=== PATIENT | female | born 1955 | race Caucasian/White ===

== ENCOUNTER → 2021-05-14 | Outpatient (CLI) | payer OTHER ==
[~2021-05-14] MED LIST: ALBU90OI INH; BECL25NI; CEFAZOLIN; CETI10 PO; CODACE60 PO; FLUT110OIA IH; FURO80 PO; OMEP10ER PO; POTCHL20ER PO; SUMA25 PO
[2021-05-15 13:17] LABS: Candida species (DNA Probe) Negative (NEGATIVE); G. vaginalis (DNA Probe) Negative (NEGATIVE); T. vaginalis (DNA Probe) Negative (NEGATIVE)
== END ==
LOC: LAB SHORT 19:04
PROVIDERS: Family Medicine
DX: N93.9 Abnormal uterine and vaginal bleeding, unspecified (principal)
CPT/HCPCS: 87480; 87510; 87660

== ENCOUNTER → 2021-06-08 | Outpatient (CLI) | payer MEDICARE | END | disposition home or self-care (01) | LOC: LAB SHORT 07:58 | DX: C54.1 Malignant neoplasm of endometrium (principal) | CPT/HCPCS: 88305 ==

== ENCOUNTER 2021-07-18 08:02 | Inpatient (IN) | payer MEDICARE ==
[~2021-07-18] VITALS: Ht 170.2 cm; Wt 132.2 kg
[2021-07-18 09:11] LABS: Hematocrit 37.8 % (33.0-51.0); Hemoglobin 12.6 g/dL (11.5-16.0); Mean Corpuscular HGB 29.4 pg (26.0-34.0); Mean Corpuscular HGB Conc 33.3 g/dL (31.5-36.5); Mean Corpuscular Volume 88 fL (80-100); Mean Platelet Volume 11.1 fL (9.1-12.4); Platelet Count 171 K/mm3 (150-400); RDW Standard Deviation 42.5 fL (35.1-46.3); Red Blood Cell Count 4.28 M/mm3 (3.80-5.20); White Blood Cell Count 18.67 K/mm3 (4.00-11.30)
[2021-07-18 09:19] LABS: Source, Urine Clean Catch
[2021-07-18 09:28] LABS: Appearance, Urine Hazy (Clear); Bilirubin, Urine Neg (Neg); Blood, Urine 1+ (Neg); Color, Urine Yellow (P-Yellow); Glucose Qualitative, Urine 4+ (Neg); Ketones, Urine 4+ (Neg); Leukocyte Esterase, Urine Neg (Neg); Nitrite, Urine Neg (Neg); Protein, Urine 1+ (Neg); Urobilinogen, Urine NORM (Normal)
[2021-07-18 09:29] LABS: Alanine Aminotransfer (ALT/SGP 16 U/L (12-78); Albumin, Blood 1.9 g/dL (3.4-5.0); Albumin/Globulin Ratio 0.4 (0.8-1.8); Alk Phos 153 U/L (50-136); Anion Gap 22 mmol/L (6-16); Aspartate Aminotrans (AST/SGOT 15 U/L (12-37); Bilirubin, Total 0.6 mg/dL (0.1-1.0); Blood Urea Nitrogen 51 mg/dL (8-24); Bun/Creatinine Ratio 61.9 (12.0-20.0); CO2, Blood 17 mmol/L (21-32); CPK Creatine Kinase 44 U/L (26-193); Calcium, Blood 10.2 mg/dL (8.5-10.1); Chloride, Blood 89 mmol/L (98-108); Creatinine, Blood 0.82 mg/dL (0.40-1.00); Globulin, Blood 5.2 g/dL (2.2-4.0); Glomerular Filtration Rate >60 (60-); Glucose, Blood 497 mg/dL (70-99); Magnesium, Blood 2.2 mg/dL (1.6-2.4); Potassium, Blood 3.8 mmol/L (3.5-5.5); Sodium, Blood 128 mmol/L (136-145); Total Protein, Blood 7.1 g/dL (6.4-8.2); Uric Acid, Blood 11.9 mg/dL (2.6-6.0)
[2021-07-18 09:34] LABS: Creatine Kinase MB <1.0 ng/mL (0.0-3.6); Creatine Kinase MB Index Unable to Calculate (0.0-4.0)
[2021-07-18] MEDS ORDERED: TRAM50 PO (09:43)
[2021-07-18 09:48] LABS: BAND PERCENT MAN 21 % (0-8); BASOPHILS PERCENT MAN 0 % (0-2); EOSINOPHILS PERCENT MAN 0 % (0-6); LYMPHOCYTES ABSOLUTE MAN 0.93 K/mm3 (0.84-5.20); LYMPHOCYTES PERCENT MAN 5 % (21-46); MONOCYTES ABSOLUTE MAN 1.49 K/mm3 (0.16-1.47); MONOCYTES PERCENT MAN 8 % (4-13); NEUTROPHILS ABSOLUTE MAN 16.24 K/mm3 (1.96-9.15); SEG NEUTROPHILS PERCENT MAN 66 % (41-73); TOTAL CELLS COUNTED 100
[2021-07-18 09:53] LABS: Red Blood Cells, Urine 0-2 /hpf (0-2); White Blood Cells, Urine 0-2 /hpf (0-5)
[2021-07-18 09:54] LABS: Amorphous Mod (0-Heavy); Bacteria Rare /hpf; Squamous Epithelial Cells Few /hpf (Few)
[2021-07-18 10:21] LABS: Base Excess Venous -8.7 mmol/L; Bicarbonate Venous 17.9 mmol/L (24.0-30.0); PCO2 Venous 37.8 mmHg (38-42); pH Blood Venous 7.29 (7.34-7.37)
[2021-07-18 13:08] LABS: Anion Gap 18 mmol/L (6-16); Blood Urea Nitrogen 51 mg/dL (8-24); Bun/Creatinine Ratio 59.7 (12.0-20.0); CO2, Blood 19 mmol/L (21-32); Calcium, Blood 9.7 mg/dL (8.5-10.1); Chloride, Blood 92 mmol/L (98-108); Creatinine, Blood 0.85 mg/dL (0.40-1.00); Glomerular Filtration Rate >60 (60-); Glucose, Blood 437 mg/dL (70-99); Potassium, Blood 3.4 mmol/L (3.5-5.5); Sodium, Blood 129 mmol/L (136-145)
[2021-07-18 15:29] LABS: U Amphetamine Screen Not Detected; U Barbituate Screen Not Detected; U Benzodiazapine Screen Not Detected; U Buprenorphine Screen Not Detected; U Cannabinoids Screen Not Detected; U Cocaine Screen Not Detected; U Methadone Screen Not Detected; U Methamphetamine Screen Not Detected; U Opiates Screen Not Detected; U Oxycodone Screen Not Detected; U Phencyclidine Screen Not Detected; U Propoxyphene Screen Not Detected
--- NOTE | 2021-07-18 15:42 | NUR ---
PT ARRIVAL... PT ARRIVED ON THE UNIT AT 1305 VIA GURNEY. THE PT WAS PULLED FROM THE GURNEY TO THE BED BY 4+ STAFF. THE PT'S VS STABLE AT THIS TIME. THE PT WAS ON AN INSULIN DRIP RUNNING AT 13UNITS/HR AND NS @500MLS/HR. THE PT WAS MOANING OUT IN PAIN WITH ANY SLIGHT TOUCH. THE PT IS IN SR W/PACs IN THE 80'S WITH A STABLE BP. L/S CLEAR T/O ON RA RR IN THE 20'S. BT PRESENT AND HYPOACTIVE. THE PT'S SKIN IS FLUSHED AND WARM TO THE TOUCH, HER TEMP IS 98.6. WILL CONTINUE TO MONITOR.
[2021-07-18 16:44] LABS: Anion Gap 9 mmol/L (6-16); Blood Urea Nitrogen 47 mg/dL (8-24); Bun/Creatinine Ratio 65.1 (12.0-20.0); CO2, Blood 25 mmol/L (21-32); Calcium, Blood 9.6 mg/dL (8.5-10.1); Chloride, Blood 97 mmol/L (98-108); Creatinine, Blood 0.72 mg/dL (0.40-1.00); Glomerular Filtration Rate >60 (60-); Glucose, Blood 296 mg/dL (70-99); Potassium, Blood 3.4 mmol/L (3.5-5.5); Sodium, Blood 131 mmol/L (136-145)
[2021-07-18 17:03] LABS: Source, Urine Foley catheter
[2021-07-18 17:49] LABS: Appearance, Urine Cloudy (Clear); Bilirubin, Urine Neg (Neg); Blood, Urine 2+ (Neg); Color, Urine Yellow (P-Yellow); Glucose Qualitative, Urine 3+ (Neg); Ketones, Urine 2+ (Neg); Leukocyte Esterase, Urine 1+ (Neg); Nitrite, Urine Neg (Neg); Protein, Urine 2+ (Neg); Urobilinogen, Urine 2+ (Normal)
--- NOTE | 2021-07-18 18:10 | NUR ---
SHIFT SUMMARY... NO ACUTE NEGATIVE CHANGES NOTED THIS SHIFT. THE PT'S VS HAVE BEEN STABLE SINCE ARRIVAL TO THE UNIT. THE PT'S INSULIN DRIP CONTINUES AT 10UNITS/HR. NS IS RUNNING AT 150MLS/HR. A TEMP ZHU WAS PLACED D/T STRICT I'S& O'S FOR THIS PT, WHEN THE ZHU WAS PLACED THE URINE WAS A MILKY YELLOW, UA WITH CLUTURE SENT TO THE LAB. THE PT HAS NOT HAD A BM THIS SHIFT. THE PT CONTINUES TO HAVE CONFUSION ASKING THIS RN "WHEN WILL THE RAIN STOP" WHEN ASKED WHAT RAIN THE PT STATED "THE RAIN, YOU KNOW ALL THE RAIN IN THE WORLD." THE PT HAS BEEN NPO THIS SHIFT WITH FREQUENT ORAL CARE. CALL LIGHT IN REACH WILL CONTINUE TO MONITOR UNTIL REPORT IS GIVEN TO ONCOMING RN.
[2021-07-18 18:18] LABS: Amorphous Heavy (0-Heavy); Bacteria Rare /hpf; Red Blood Cells, Urine 0-2 /hpf (0-2); Squamous Epithelial Cells Rare /hpf (Few); Uric Acid Crystals Few /hpf; White Blood Cells, Urine 0-2 /hpf (0-5)
--- NOTE | 2021-07-18 19:30 | NUR ---
PT REPORT RECEIVED, PT LYING SUPINE IN BED AND IS DROWSY BUT WAKES TO VOICE AND IS ABLE TO ANSWER QUESTIONS. INSULIN GTT CURRENTLY RUNING AT 10 U/HR. ASSUMED PT CARE.
[2021-07-18 20:12] LABS: Anion Gap 5 mmol/L (6-16); Blood Urea Nitrogen 43 mg/dL (8-24); Bun/Creatinine Ratio 63.7 (12.0-20.0); CO2, Blood 27 mmol/L (21-32); Calcium, Blood 9.4 mg/dL (8.5-10.1); Chloride, Blood 101 mmol/L (98-108); Creatinine, Blood 0.68 mg/dL (0.40-1.00); Glomerular Filtration Rate >60 (60-); Glucose, Blood 228 mg/dL (70-99); Potassium, Blood 3.5 mmol/L (3.5-5.5); Sodium, Blood 133 mmol/L (136-145)
[2021-07-19 00:25] LABS: Anion Gap 8 mmol/L (6-16); Blood Urea Nitrogen 38 mg/dL (8-24); Bun/Creatinine Ratio 57.7 (12.0-20.0); CO2, Blood 26 mmol/L (21-32); Calcium, Blood 9.3 mg/dL (8.5-10.1); Chloride, Blood 101 mmol/L (98-108); Creatinine, Blood 0.66 mg/dL (0.40-1.00); Glomerular Filtration Rate >60 (60-); Glucose, Blood 171 mg/dL (70-99); Potassium, Blood 3.4 mmol/L (3.5-5.5); Sodium, Blood 135 mmol/L (136-145)
[2021-07-19 04:20] LABS: Hematocrit 31.8 % (33.0-51.0); Hemoglobin 11.1 g/dL (11.5-16.0); Mean Corpuscular HGB 29.6 pg (26.0-34.0); Mean Corpuscular HGB Conc 34.9 g/dL (31.5-36.5); Mean Corpuscular Volume 85 fL (80-100); Platelet Count 180 K/mm3 (150-400); RDW Coefficient Variation 12.8 % (11.7-14.2); RDW Standard Deviation 39.5 fL (35.1-46.3); Red Blood Cell Count 3.75 M/mm3 (3.80-5.20); White Blood Cell Count 15.41 K/mm3 (4.00-11.30)
[2021-07-19 04:37] LABS: Anion Gap 6 mmol/L (6-16); Blood Urea Nitrogen 36 mg/dL (8-24); Bun/Creatinine Ratio 53.3 (12.0-20.0); CO2, Blood 27 mmol/L (21-32); Calcium, Blood 9.1 mg/dL (8.5-10.1); Chloride, Blood 102 mmol/L (98-108); Creatinine, Blood 0.68 mg/dL (0.40-1.00); Glomerular Filtration Rate >60 (60-); Glucose, Blood 139 mg/dL (70-99); Potassium, Blood 3.3 mmol/L (3.5-5.5); Sodium, Blood 135 mmol/L (136-145)
[2021-07-19 05:26] LABS: BAND PERCENT MAN 21 % (0-8); BASOPHILS PERCENT MAN 0 % (0-2); EOSINOPHILS PERCENT MAN 0 % (0-6); LYMPHOCYTES ABSOLUTE MAN 0.77 K/mm3 (0.84-5.20); LYMPHOCYTES PERCENT MAN 5 % (21-46); MONOCYTES ABSOLUTE MAN 0.92 K/mm3 (0.16-1.47); MONOCYTES PERCENT MAN 6 % (4-13); MYELOCYTE ABSOLUTE MAN 0.15 K/mm3 (0.00-0.00); MYELOCYTE PERCENT MAN 1 % (0-0); NEUTROPHILS ABSOLUTE MAN 13.56 K/mm3 (1.96-9.15); SEG NEUTROPHILS PERCENT MAN 67 % (41-73); TOTAL CELLS COUNTED 100
[2021-07-19 06:09] LABS: HEMOGLOBIN A1C 12.4 % (4.8-5.6)
--- NOTE | 2021-07-19 06:45 | NUR ---
SHIFT SUMMERY: PT REMAINS LETHARGIC AND PAINFUL. PT ABLE TO FOLLOW COMMANDS BUT IS NOT COMPLIANT WITH SOME CARE DUE TO CHRONIC PAIN WITH FIBROMYALGIA. PT HAS BEEN DROWSY WITH ORIENTATION SLIGHTLY BETTER AT 0400 TO SELF, PLACE AND TIME, THOUGH SHE STILL HAS SIGNIFICANT CONFUSION. D5 1/2NS NOW RUNNING AT 125ML/HR AND INSULIN GTT AT 5 U/HR. MD MADE AWARE OF BLOOD CULTURE RESULT OF GRAM POSITIVE COCCI IN CHAINS WITH ORDER RECIEVED FOR ANTIBIOTICS. MODERATE TO HEAVY VAGINAL FLOW WAS NOTED WITH A PAD IN PLACE. PT REFUSED PRN IBUPROFEN FOR TEMPERATURE MANAGEMENT. TEMP PEAKED AT 101.3 AND DECREASED TO 100.4 WITH COLD PACKS TO HER AXILA.
[2021-07-19 08:59] LABS: Anion Gap 7 mmol/L (6-16); Blood Urea Nitrogen 31 mg/dL (8-24); Bun/Creatinine Ratio 55.6 (12.0-20.0); CO2, Blood 25 mmol/L (21-32); Calcium, Blood 9.1 mg/dL (8.5-10.1); Chloride, Blood 102 mmol/L (98-108); Creatinine, Blood 0.56 mg/dL (0.40-1.00); Glomerular Filtration Rate >60 (60-); Glucose, Blood 297 mg/dL (70-99); Potassium, Blood 3.1 mmol/L (3.5-5.5); Sodium, Blood 134 mmol/L (136-145)
--- NOTE | 2021-07-19 09:00 | NUR ---
AM NOTE.... ASSUMED CARE OF PT AT 0700, THE PT IS A&Ox3. THE PT IS ON AN INSULIN DRIP RUNNING AT 5 UNITS/HR AT THE START OF THIS SHIFT. THE PT'S CBGs ARE BEING CHECKED Q1HR WHILE ON THE DRIP (SEE LABS). THE PT'S VS ARE STABE AT THIS TIME THE PT IS IN SR W/ OCC PACs INT EH 80'S BP IS STABLE BUT SLIGHTLY HYPERTENSIVE WITH SBPs IN THE 150'S. THE PT IS ON RA WITH O2 SATS >90%. L/S CLEAR T/O DIM IN THE BASES. BT PRESENT AND HYPOACTIVE ABD SOFT AND NONTENDER TO PALPATION. THE PT'S ZHU IS PATENT AND DRAINING TO GRAVITY. THE PT HAS NOT HAD A BM SINCE ADMIT.
--- NOTE | 2021-07-19 11:45 | NUR ---
PT UPDATE... THE PT WAS GIVEN 30 UNITS OF SUB Q LANTUS AT 0930, THE INSULIN DRIP AND D5 W IN 1/2NS THAT WAS RUNNING AT 125MLS/HR WAS STOPPED PER ORDERS. THE PT HAS TOLERATED WATER WELL AT THIS TIME. WILL CONTINUE TO MONITOR.
[2021-07-19 16:02] LABS: Albumin, Blood 1.5 g/dL (3.4-5.0); Anion Gap 10 mmol/L (6-16); Blood Urea Nitrogen 30 mg/dL (8-24); Bun/Creatinine Ratio 47.5 (12.0-20.0); CO2, Blood 23 mmol/L (21-32); Calcium, Blood 9.4 mg/dL (8.5-10.1); Chloride, Blood 100 mmol/L (98-108); Creatinine, Blood 0.63 mg/dL (0.40-1.00); Glomerular Filtration Rate >60 (60-); Glucose, Blood 300 mg/dL (70-99); Phosphorus, Blood 1.6 mg/dL (2.5-4.9); Potassium, Blood 3.8 mmol/L (3.5-5.5); Sodium, Blood 133 mmol/L (136-145)
--- NOTE | 2021-07-19 18:17 | NUR ---
SHIFT SUMMARY.... NO ACUTE NEGATIVE CHANGES NOTED THIS SHIFT. THE INSULIN DRIP WAS STOPPED AT 1130. THE PT HAS DENIED ANY N/V THIS SHIFT. THE PT HAS BEEN FEBRILE T/O THIS SHIFT WITH A TMAX OF 101.1 THE PT HAS BEEN REFUSED ANY ADVIL MOST OF THIS SHIFT UP UNTIL APROX 1700 WHEN SHE WAS WILLING TO TAKE IT. THE PT'S ZHU IS PATENT AND DRAINING TO GRAVITY. SHE HAS NOT HAD A BM THIS SHIFT. THE PT HAS BEEN SLEEPING AND LETHARGIC MOST OF THIS SHIFT ASKING STAFF TO MOVE HER ARMS AND LEGS FOR HER. BUT THE PT IS ABLE TO MOVE HER ARMS AND LEGS QUITE WELL IF GIVEN THE RIGHT ENCOURAGEMENT. THE LIFT WAS USED TO GET THE PT UP INTO THE RECLINER CHAIR FOR DINNER. THE PT ATE 100% OF DINNER. THE PT HAS HAD A LARGE AMOUNT OF DARK RED/BROWN THICK VAGINAL DISCHARGE THIS SHIFT. THE PT HAS BEEN HYPERTENSIVE WITH SBPs IN THE 160'S-180'S SHE WAS MEDICATED PER EMAR WITH IV HYDRALAZINE WHICH WORKED THE FIRST FEW TIMES SHE WAS GIVEN IT BUT THIS AFTERNOON THE PT'S BP CONTINUED TO BE >170. PROVIDER WAS CALLED AND NEW ORDERS FOR LISINOPRIL AND NORVASC WERE OBTAINED. THIS WAS GIVEN AND THE PT TOLERATED TAKING THEM WELL. WILL CONTINUE TO MONITOR UNTIL REPORT IS GIVEN TO ONCOMING RN.
--- NOTE | 2021-07-19 19:40 | NUR ---
ASSUMED CARE. REPORT RECEIVED FROM IDA COREAS. PT RESTING IN BED AT THIS TIME. IV ACCESS IN R/AC, L/AC. ZHU CATHETER IN PLACE, DRAINING TO GRAVITY. PT SLEEPING BUT AROUSABLE, CALL LIGHT WITHIN REACH. VS STABLE AT THIS TIME, WILL CONTINUE TO MONITOR.
[2021-07-20 04:31] LABS: BASOPHILS ABSOLUTE AUTO 0.11 K/mm3 (0.00-0.23); BASOPHILS PERCENT AUTO 1 % (0-2); Hematocrit 31.6 % (33.0-51.0); LYMPHOCYTES ABSOLUTE AUTO 1.31 K/mm3 (0.84-5.20); LYMPHOCYTES PERCENT AUTO 9 % (21-46); MONOCYTES ABSOLUTE AUTO 0.78 K/mm3 (0.16-1.47); MONOCYTES PERCENT AUTO 5 % (4-13); Mean Corpuscular HGB 30.1 pg (26.0-34.0); Mean Corpuscular HGB Conc 34.8 g/dL (31.5-36.5); Mean Corpuscular Volume 86 fL (80-100); Mean Platelet Volume 11.3 fL (9.1-12.4); Platelet Count 211 K/mm3 (150-400); RDW Coefficient Variation 13.2 % (11.7-14.2); RDW Standard Deviation 41.7 fL (35.1-46.3); Red Blood Cell Count 3.66 M/mm3 (3.80-5.20); White Blood Cell Count 15.17 K/mm3 (4.00-11.30)
[2021-07-20 04:47] LABS: EOSINOPHILS PERCENT AUTO 0 % (0-6); IMMATURE GRAN ABSOLUTE AUTO 0.87 K/mm3 (0.00-0.10); IMMATURE GRAN PERCENT AUTO 6 % (0-1); NEUTROPHILS PERCENT AUTO 80 % (41-73)
[2021-07-20 04:49] LABS: Albumin, Blood 1.4 g/dL (3.4-5.0); Anion Gap 9 mmol/L (6-16); Blood Urea Nitrogen 35 mg/dL (8-24); Bun/Creatinine Ratio 53.2 (12.0-20.0); CO2, Blood 23 mmol/L (21-32); Calcium, Blood 9.5 mg/dL (8.5-10.1); Chloride, Blood 101 mmol/L (98-108); Creatinine, Blood 0.66 mg/dL (0.40-1.00); Glomerular Filtration Rate >60 (60-); Glucose, Blood 386 mg/dL (70-99); Phosphorus, Blood 2.1 mg/dL (2.5-4.9); Potassium, Blood 3.8 mmol/L (3.5-5.5); Sodium, Blood 133 mmol/L (136-145)
--- NOTE | 2021-07-20 06:36 | NUR ---
SHIFT SUMMARY. PT RESTED IN BED THROUGHOUT SHIFT, ALERT AND ORIENTED. PT ON ROOM AIR, NS RUNNING AT 150/HR. ZHU CATHETER IN PLACE, 1000 MLS URINE OUT THIS SHIFT. VS STABLE, SEE SHIFT ASSESSMENT FOR FURTHER DETAILS. WILL CONTINUE TO MONITOR AND REPORT OFF TO DAYSHIFT RN.
--- NOTE | 2021-07-20 09:30 | NUR ---
ASSUMED CARE REPORT FROM IVY COREAS AT 0700. PT RESTING IN BED. REQUESTING ADDITIONAL TIME FOR SLEEPING, PROVIDED. PT WAKES c VERBAL STIMULI. FOLLOWS SIMPLE COMMANDS. PT ABLE TO ASSIST c CARE BUT NEEDS ENCOURAGEMENT. C/O RIGHT WRIST AND BILATERAL KNEE PAIN. PT RETURNS TO SLEEP WHEN UNDISTURBED. PT REFUSING BREAKFAST, CBG 300'S. COVERAGE PROVIDED. TOLERATING PO FLUIDS WELL. ABD ROUND, SOFT, NON TENDER. BT X 4. ZHU PATENT, DRAINING CLEAR YELLOW URINE TO GRAVITY. VSS. WILL CONTINUE TO MONITOR.
--- NOTE | 2021-07-20 13:05 | NUR ---
Pt had me asisit with calling her friend to check on her cats. She still states no family to involve in care. she spoke with Dr Trujillo and made herself a full code. Will continue to folllow pt will need ex\tensive medical care.
--- NOTE | 2021-07-20 17:24 | NUR ---
SHIFT SUMMARY/TRANSFER TO MEDICAL FLOOR NO ACUTE CHANGES THIS SHIFT. PT SLEPT MOST OF SHIFT. WHEN AWAKE C/O PAIN THROUGHOUT BODY, BILATERAL SHOULDERS, KNEES, WRISTS, NECK. APPEARS TO SLEEP WHEN UNDISTURBED. REQUIRES MOTIVATION TO ASSIST c ADLS. POOR APPETITE FOR BREAKFAST AND LUNCH, EATING DINNER AT THIS TIME. GOOD LIQUID INTAKE. IVF CONTINUE AT 150 ML/HR. BOTH LONG AND SHORT ACTING INSULIN INCREASED THIS SHIFT. CBG'S 200'S. [id number] PATENT, DRAINING TO GRAVITY. 2000 ML OUT THIS SHIFT. BED BATH COMPLETE. PT DECLINED WORKING c OT THIS SHIFT. PT TO BE TRANSFERRED TO [facility], REPORT TO TATI, ALL BELONGINGS TO BE SENT c PT.
--- NOTE | 2021-07-20 17:55 | NUR ---
PT ARRIVED TO ROOM 308 FROM ICU AND LIFTING ASSITANCE REQUIRED TO TRANSFER TO NEW BED. PT ORIENTED TO ROOM AND CALL SYSTEM. VSS, BED IN LOWEST POSITION AND CALL SANCHEZ IN REACH. WILL CONTINUE TO MONITOR.
--- NOTE | 2021-07-21 03:54 | NUR ---
ASSOCIATE SCHOOL PSYCHOLOGIST SUMMARY HAS BEEN AWAKE AT INTERVALS THROUGHOUT NIGHT. FREQUENT REPOSIIONS WHICH PT ASSISTS WITH. IVF OF NS INFUSING AT 150 ML/HR. ELEVATED TEMP, IBUPROFEN 200 MG ADMINISTERED AND ICE TO BILAT AXILLA. WILL RECHECK TEMP SOON. USING CALL LIGHT APPROPRIATELY. CALL LIGHT IN REACH. INSULIN ADMINISTERED PER JUN - SEE MAR FOR DETAILS
[2021-07-21 06:14] LABS: Hematocrit 30.9 % (33.0-51.0); Hemoglobin 10.4 g/dL (11.5-16.0); Mean Corpuscular HGB 29.4 pg (26.0-34.0); Mean Corpuscular HGB Conc 33.7 g/dL (31.5-36.5); Mean Corpuscular Volume 87 fL (80-100); Mean Platelet Volume 11.4 fL (9.1-12.4); Platelet Count 247 K/mm3 (150-400); RDW Coefficient Variation 13.2 % (11.7-14.2); RDW Standard Deviation 42.6 fL (35.1-46.3); Red Blood Cell Count 3.54 M/mm3 (3.80-5.20); White Blood Cell Count 15.37 K/mm3 (4.00-11.30)
[2021-07-21 06:24] LABS: Albumin, Blood 1.3 g/dL (3.4-5.0); Anion Gap 8 mmol/L (6-16); Blood Urea Nitrogen 21 mg/dL (8-24); Bun/Creatinine Ratio 40.5 (12.0-20.0); CO2, Blood 24 mmol/L (21-32); Calcium, Blood 8.9 mg/dL (8.5-10.1); Chloride, Blood 103 mmol/L (98-108); Creatinine, Blood 0.52 mg/dL (0.40-1.00); Glomerular Filtration Rate >60 (60-); Glucose, Blood 265 mg/dL (70-99); Phosphorus, Blood 1.9 mg/dL (2.5-4.9); Sodium, Blood 135 mmol/L (136-145)
[2021-07-21 06:44] LABS: BAND PERCENT MAN 15 % (0-8); BASOPHILS PERCENT MAN 0 % (0-2); EOSINOPHILS PERCENT MAN 0 % (0-6); LYMPHOCYTES ABSOLUTE MAN 1.07 K/mm3 (0.84-5.20); LYMPHOCYTES PERCENT MAN 7 % (21-46); METAMYELOCYTE ABSOLUTE MAN 0.15 K/mm3 (0.00-0.00); METAMYELOCYTE PERCENT MAN 1 % (0-0); MONOCYTES ABSOLUTE MAN 1.69 K/mm3 (0.16-1.47); MONOCYTES PERCENT MAN 11 % (4-13); MYELOCYTE ABSOLUTE MAN 0.15 K/mm3 (0.00-0.00); MYELOCYTE PERCENT MAN 1 % (0-0); NEUTROPHILS ABSOLUTE MAN 12.29 K/mm3 (1.96-9.15); SEG NEUTROPHILS PERCENT MAN 65 % (41-73); TOTAL CELLS COUNTED 100
--- NOTE | 2021-07-21 18:08 | NUR ---
PATIENT TIRED. SLEPT MOST OF THE DAY. OT/PT WORKED WITH PT TODAY. CBGS >250 SSI INSULIN GIVEN. POTASSIUM PHOSPHATE IV INFUSION GIVEN THIS AM, ROCEPHIN, VANCO ABX GIVEN THIS SHIFT. VITALS STABLE, BP> 150. ZHU IN PLACE, DRAINING TO GRAIVITY. URINE DARK WITH SEDIMENT. LARGE LOOSE BM TODAY.
--- NOTE | 2021-07-22 04:20 | NUR ---
SHIFT SUMMARY: Patient rested throughout the night, A&O, VSS on RA, offered frequent repositioning, patient reports pain to her neck, PRN pain medication administered, patient trasnferred to a lift room to assist with patient transfers and repositioning, blood sugar noted at 245, no insulin required, education provided abouit medications, PT and the importance of movement
[2021-07-22 05:22] LABS: Hematocrit 30.6 % (33.0-51.0); Hemoglobin 10.2 g/dL (11.5-16.0); Mean Corpuscular HGB 29.3 pg (26.0-34.0); Mean Corpuscular HGB Conc 33.3 g/dL (31.5-36.5); Mean Corpuscular Volume 88 fL (80-100); Mean Platelet Volume 10.5 fL (9.1-12.4); Platelet Count 300 K/mm3 (150-400); RDW Coefficient Variation 13.4 % (11.7-14.2); RDW Standard Deviation 43.1 fL (35.1-46.3); Red Blood Cell Count 3.48 M/mm3 (3.80-5.20); White Blood Cell Count 17.16 K/mm3 (4.00-11.30)
[2021-07-22 05:38] LABS: Albumin, Blood 1.2 g/dL (3.4-5.0); Anion Gap 7 mmol/L (6-16); Blood Urea Nitrogen 19 mg/dL (8-24); CO2, Blood 27 mmol/L (21-32); Calcium, Blood 8.7 mg/dL (8.5-10.1); Chloride, Blood 103 mmol/L (98-108); Creatinine, Blood 0.56 mg/dL (0.40-1.00); Glomerular Filtration Rate >60 (60-); Glucose, Blood 182 mg/dL (70-99); Phosphorus, Blood 2.4 mg/dL (2.5-4.9); Potassium, Blood 3.1 mmol/L (3.5-5.5); Sodium, Blood 137 mmol/L (136-145)
[2021-07-22 05:46] LABS: BAND PERCENT MAN 7 % (0-8); BASOPHILS PERCENT MAN 0 % (0-2); EOSINOPHILS ABSOLUTE MAN 0.17 K/mm3 (0.00-0.68); EOSINOPHILS PERCENT MAN 1 % (0-6); LYMPHOCYTES ABSOLUTE MAN 2.05 K/mm3 (0.84-5.20); LYMPHOCYTES PERCENT MAN 12 % (21-46); MONOCYTES ABSOLUTE MAN 0.85 K/mm3 (0.16-1.47); MONOCYTES PERCENT MAN 5 % (4-13); NEUTROPHILS ABSOLUTE MAN 14.07 K/mm3 (1.96-9.15); SEG NEUTROPHILS PERCENT MAN 75 % (41-73); TOTAL CELLS COUNTED 100
--- NOTE | 2021-07-22 18:28 | NUR ---
SHIFT SUMMARY: PATIENT HAS BEEN IN AND OUT OF SLEEP THROUGHOUT THE DAY. SHE IS ALERT AND ORIENTED. SHE IS ON RA. ZHU CATHETER IN PLACE WITH 1750 MLS OUT ON THIS SHIFT. DIFFICULT TO AROUSE AT BEGINNING OF SHIFT. SHE WAS SWITCHED FROM REGULAR DIET TO MECHANICAL SOFT. SHE IS CURRENTLY UP IN HER CHAIR FOR DINNER. PT WANTS HER IN HER CHAIR FOR AT LEAST ONE MEAL A DAY. PT AND OT WORKED WITH HER THIS MORNING AND GOT HER TO SIT ON SIDE OF BED WITH LIMITED ASSISTANCE. BLOOD SUGAR WAS ELEVATED THROUGHOUT THE DAY. SHE HAS INCREASED BLOOD PRESSURE. OTHER V/S REMAIN STABLE.
[2021-07-23 05:39] LABS: Hematocrit 30.8 % (33.0-51.0); Mean Corpuscular HGB Conc 32.5 g/dL (31.5-36.5); Mean Corpuscular Volume 89 fL (80-100); Mean Platelet Volume 10.6 fL (9.1-12.4); Platelet Count 379 K/mm3 (150-400); RDW Coefficient Variation 13.5 % (11.7-14.2); RDW Standard Deviation 43.8 fL (35.1-46.3); Red Blood Cell Count 3.45 M/mm3 (3.80-5.20); White Blood Cell Count 16.81 K/mm3 (4.00-11.30)
--- NOTE | 2021-07-23 06:11 | NUR ---
SHIFT SUMMARY PT HAD A GOOD NIGHT. SLEPT WELL. PAIN TO LEFT SIDE OF BODY. MEDICATED W/ MOTRIN BEFORE BED WITH GOOD EFFECT. ZHU CATH PATENT AND DRAINING. PT ASSISTING MORE WITH TURNING THIS EVENING. STRONGER AND MORE ALERT. SOME REDNESS TO GROIN AREA, ANTIFUNGAL POWDER APPLIED. PREVENTATIVE MEPILEX PLACED TO COCCYX AND HEELS. BLE'S FLOATED ON PILLOWS. PT TURNED AND REPOSITIONED TOLERATED. VITAL SIGNS STABLE.
[2021-07-23 06:15] LABS: BAND PERCENT MAN 9 % (0-8); BASOPHILS PERCENT MAN 0 % (0-2); EOSINOPHILS ABSOLUTE MAN 0.33 K/mm3 (0.00-0.68); EOSINOPHILS PERCENT MAN 2 % (0-6); LYMPHOCYTES ABSOLUTE MAN 2.18 K/mm3 (0.84-5.20); LYMPHOCYTES PERCENT MAN 13 % (21-46); METAMYELOCYTE ABSOLUTE MAN 0.16 K/mm3 (0.00-0.00); METAMYELOCYTE PERCENT MAN 1 % (0-0); MONOCYTES ABSOLUTE MAN 1.34 K/mm3 (0.16-1.47); MONOCYTES PERCENT MAN 8 % (4-13); NEUTROPHILS ABSOLUTE MAN 12.77 K/mm3 (1.96-9.15); SEG NEUTROPHILS PERCENT MAN 67 % (41-73); TOTAL CELLS COUNTED 100
[2021-07-23 06:53] LABS: Albumin, Blood 1.2 g/dL (3.4-5.0); Anion Gap 7 mmol/L (6-16); Blood Urea Nitrogen 14 mg/dL (8-24); Bun/Creatinine Ratio 25.4 (12.0-20.0); CO2, Blood 29 mmol/L (21-32); Calcium, Blood 8.7 mg/dL (8.5-10.1); Chloride, Blood 103 mmol/L (98-108); Creatinine, Blood 0.55 mg/dL (0.40-1.00); Glomerular Filtration Rate >60 (60-); Glucose, Blood 143 mg/dL (70-99); Magnesium, Blood 1.7 mg/dL (1.6-2.4); Phosphorus, Blood 2.8 mg/dL (2.5-4.9); Potassium, Blood 3.3 mmol/L (3.5-5.5); Sodium, Blood 139 mmol/L (136-145)
--- NOTE | 2021-07-23 17:22 | NUR ---
SHIFT SUMMARY PT IS AOX4, ABLE TO SWALLOW PILLS WHOLE WITH WATER. MEDICATED PER EMAR. EDUCATED PT ON WORKING WITH PT AND OT AND SITTING IN THE CHAIR FOR MEALS. PT DID SEEM RECEPTIVE TO EDUCATION. REMOVED ZHU PER DR. BARRAGAN, PT UP TO CHAIR WITH PT. INTERIOR ASSEMBLIES INSTALLER AND RN ASSISTED BACK TO BED FOR PT TO USE BEDPAN. REPOSITONED PT THROUGHOUT SHIFT AND MEDICATED WITH INSULIN PER EMAR. PT IS CURRENTLY UP IN CHAIR VIA LIFT FOR DINNER. CALL LIGHT IS IN REACH, VSS WILL CONTINUE TO MONITOR.
--- NOTE | 2021-07-24 04:16 | NUR ---
SHIFT SUMMARY PT ADMITTED FOR DKA. CBG AT 176 AT HS. NO COVERAGE NEEDED. LIFT TRANSFER FROM CHAIR TO BED. PT LIKE TO LAY FLAT ON BED, DENIES SOB/CP. BLE AND UE APPEARS TO HAVE SOME EDEMA. ZHU WAS TAKEN OUT YESTERDAY BY DAY SHIFT NURSE, UA MONITORED. PT USED BEDPAN TO URINATE. VOIDED (UNMEASURED) AND HAD A LARGE LOOSE BROWN BM. PT ALSO REPORTS PAIN ON BILATERAL SHOULDER AND NECK. NECK PILLOW OFFERED. VSS. PASSING FLATUS. TOLERATES ORAL INAKE WITHOUT DIFFICULTY. PT DENIES N/V. CALL LIGHT WITHIN REACH. WILL CONTINUE TO MONITOR PT OVERNIGHT.
[2021-07-24 05:27] LABS: Anion Gap 5 mmol/L (6-16); Blood Urea Nitrogen 14 mg/dL (8-24); Bun/Creatinine Ratio 25.5 (12.0-20.0); CO2, Blood 30 mmol/L (21-32); Calcium, Blood 8.9 mg/dL (8.5-10.1); Chloride, Blood 102 mmol/L (98-108); Creatinine, Blood 0.55 mg/dL (0.40-1.00); Glomerular Filtration Rate >60 (60-); Glucose, Blood 163 mg/dL (70-99); Potassium, Blood 3.5 mmol/L (3.5-5.5); Sodium, Blood 137 mmol/L (136-145)
[2021-07-24 05:28] LABS: BASOPHILS ABSOLUTE AUTO 0.06 K/mm3 (0.00-0.23); BASOPHILS PERCENT AUTO 0 % (0-2); EOSINOPHILS ABSOLUTE AUTO 0.15 K/mm3 (0.00-0.68); EOSINOPHILS PERCENT AUTO 1 % (0-6); Hematocrit 31.7 % (33.0-51.0); Hemoglobin 10.5 g/dL (11.5-16.0); IMMATURE GRAN ABSOLUTE AUTO 0.66 K/mm3 (0.00-0.10); IMMATURE GRAN PERCENT AUTO 4 % (0-1); LYMPHOCYTES PERCENT AUTO 14 % (21-46); MONOCYTES ABSOLUTE AUTO 0.89 K/mm3 (0.16-1.47); MONOCYTES PERCENT AUTO 5 % (4-13); Mean Corpuscular HGB 29.9 pg (26.0-34.0); Mean Corpuscular HGB Conc 33.1 g/dL (31.5-36.5); Mean Corpuscular Volume 90 fL (80-100); Mean Platelet Volume 10.1 fL (9.1-12.4); NEUTROPHILS ABSOLUTE AUTO 12.73 K/mm3 (1.96-9.15); NEUTROPHILS PERCENT AUTO 76 % (41-73); Platelet Count 505 K/mm3 (150-400); RDW Coefficient Variation 13.5 % (11.7-14.2); RDW Standard Deviation 44.2 fL (35.1-46.3); Red Blood Cell Count 3.51 M/mm3 (3.80-5.20); White Blood Cell Count 16.79 K/mm3 (4.00-11.30)
--- NOTE | 2021-07-24 09:11 | NUR ---
pt laying in bed awake a/ox3, pleasant and cooperative with care, follows commands well, reports pain and stiffness to her shoulders, rates at 8/10, requested ibuprofen, this was given, lungs are clear dim in bases, resp even and unlabored on r/a, no cough noted, hrr, 3+ edema note to b/l le, more on right than left, pp faint, cap refill <3sec, vs stable, afebrile, iv to b/l ac, and power glide to kevin, sites clear and patent, btx4, abd flat soft nontender, voids via bedpan at this time, also has briefs in place, skin has rash in [place] area, maew, slow to move, is a lift to get oob, rambo, call light in reach.
--- NOTE | 2021-07-24 19:22 | NUR ---
no acute changes this shift, pt has slept most of the day, wakes for meals, PT worked with her this am, call light in reach.
--- NOTE | 2021-07-25 03:51 | NUR ---
SHIFT SUMMARY AOX4. NO ACUTE CHANGES OVERNIHGT. PT REPORTS UTERINE PAIN, ADVIL 200MG GIVEN, PT STS PAIN DIDN'T IMPROVED. CALLED HOSPITALIST FOR ADD'T PAIN MED. OXYCODONE 5MG Q4, GIVEN ONCE. PT SLEPT GOOD AFTER PAIN IMPROVED. PT ALSO REPORTS MUSCLE SPASM ON HER SHOULDER, BACK AND NECK. REPOSITIONED AND ADMINISTERED SKELAXIN. VOIDS AND HAD 1 SMALL BM. ATTENDS IN PLACED. TOLERATES PO INTAKE, DENIES N/V. CBG AT 140 AT HS. NO COVERAGE NEEDED. PT HAS BEEN HYPERTENSIVE. ASYMPTOMATIC HYDRALZINE 10MG IV ADMINSTERED ONCE. CALL LIGHT WITHIN REACH. WILL PROVIDE REPORT TO ONCOMING NURSE.
--- NOTE | 2021-07-25 08:00 | NUR ---
pt laying in bed, states she slept well last night, but has some pain in lower pelvic area, rates at 7/10, states shoulders and neck hurt at times, lungs are dim t/o, resp even and unlabored, no cough noted, hrr, 3+ edema noted to b/l le, ross around ankles, pp faint, cap refill <3sec, vs stable, afebrile, ivs are clear and patent, piv to each ac, and power glide to kevin, btx4, abd flat soft nontender, voids via bedpan at this time, skin c/w/d, rambo curran, call light in reach.
--- NOTE | 2021-07-25 18:07 | NUR ---
pt has slept most of the day, she is awake and ready for dinner at this time, states her cancer is hurting, oxycodone was given at her request, no further needs at this time, no acute changes this shift. call light in reach.
[2021-07-26 05:43] LABS: BASOPHILS ABSOLUTE AUTO 0.03 K/mm3 (0.00-0.23); BASOPHILS PERCENT AUTO 0 % (0-2); EOSINOPHILS PERCENT AUTO 2 % (0-6); Hematocrit 35.5 % (33.0-51.0); IMMATURE GRAN ABSOLUTE AUTO 0.14 K/mm3 (0.00-0.10); IMMATURE GRAN PERCENT AUTO 1 % (0-1); LYMPHOCYTES ABSOLUTE AUTO 2.46 K/mm3 (0.84-5.20); LYMPHOCYTES PERCENT AUTO 18 % (21-46); MONOCYTES ABSOLUTE AUTO 0.76 K/mm3 (0.16-1.47); MONOCYTES PERCENT AUTO 6 % (4-13); Mean Corpuscular HGB 29.2 pg (26.0-34.0); Mean Corpuscular Volume 94 fL (80-100); Mean Platelet Volume 9.8 fL (9.1-12.4); NEUTROPHILS ABSOLUTE AUTO 9.94 K/mm3 (1.96-9.15); NEUTROPHILS PERCENT AUTO 74 % (41-73); Platelet Count 604 K/mm3 (150-400); RDW Coefficient Variation 13.4 % (11.7-14.2); RDW Standard Deviation 46.3 fL (35.1-46.3); Red Blood Cell Count 3.77 M/mm3 (3.80-5.20); White Blood Cell Count 13.53 K/mm3 (4.00-11.30)
[2021-07-26 05:59] LABS: Anion Gap 5 mmol/L (6-16); Blood Urea Nitrogen 13 mg/dL (8-24); Bun/Creatinine Ratio 28.2 (12.0-20.0); CO2, Blood 32 mmol/L (21-32); Chloride, Blood 101 mmol/L (98-108); Creatinine, Blood 0.46 mg/dL (0.40-1.00); Glomerular Filtration Rate >60 (60-); Glucose, Blood 126 mg/dL (70-99); Potassium, Blood 3.7 mmol/L (3.5-5.5); Sodium, Blood 138 mmol/L (136-145)
--- NOTE | 2021-07-26 07:55 | NUR ---
SHIFT SUMMARY AOX4. CBG IS WELL CONTROLLED OVERNIGHT. MILDLY HYPERTENSIVE BUT DIDN'T REQUIRE HYRDALZINE MED. RECENT DIAGNOSED W/ ENDOMETRIAL CANCER, PT REPORTS TO HAVE INCREASING ABD PAIN. PAIN MANAGED WITH MOTRIN AND OXYCODONE. FENTANYL 25MCG AVAILABLE IF NEEDED FOR BREAKTHROUGH. PT REPORTS SOB THIS MORNING WHEN SHE WOKE UP REQUESTING FOR BREATHING TX, I ADDRESS THIS TO DAY SHIFT NURSE. ENC PT TO USE I/S AND FLUTTER VALVE. ALSO ENC MOVEMENT. CALL LIGHT WITHIN REACH. REPORT GIVEN TO AM NURSE.
--- NOTE | 2021-07-26 08:45 | NUR ---
BEGIN SHIFT RECEIVED REPORT, ASSUMED CARE OF PT.
--- NOTE | 2021-07-26 14:34 | NUR ---
Patient is lying in bed and alert. patient immediately tells me that she is not bahai but is a "fatalist." We talk about how she came to her beliefs and she then admits to dealing with depresssion. The weight of the depression comes from her fatalistic view of her finances. She talks about the quality of life she has now and how horrible the future looks due to the medical bills that are growing by the hour. She states that she has now support people in her life and that she is "the rock other people crash against. Pt does have good coping skills that will serve her well once she passes through being a bit overwhelmed at the moment. I listen empathically, normalize pt's experience, reinforce helpful attitudes and practices and establish therapeutic alliance, Pt responds well and shows signs an elevated perspective and mood. I will continue to remain available to pt and family.
--- NOTE | 2021-07-26 18:23 | NUR ---
SHIFT SUMMARY PT A&O X 4. PT SAT UP IN FOR 1 1/2 HR TODAY. TRANSFERRED MOD ASSISTX2 WITH GAIT BELT & WALKER. MEDICATED THROUGHOUT SHIFT PER MD ORDERS FOR C/O PAIN IN LOWER ABD AND R SHOULDER PAIN. VSS ALL SHIFT. PT REMAINS INCONTINENT OF URINE. CASE MANAGEMENT ATTEMPTING TO ARRANGE DC TO EITHER HOME WITH HH IF SAFE OR TO REHAB IF NEEDED.
--- NOTE | 2021-07-27 06:06 | NUR ---
SHIFT SUMMARY PT RESTED WELL, MED PER MAR FOR C/O CHRONIC PAIN AND NECK PAIN, ICE PACKS GIVEN TO PT PER REQUEST FOR NECK. PT INCONTINENT OF URINE WHILE SLEEPING, EDEN PO WELL, VSS. A/O X 4, BLOOD GLUCOSE 160 AT H/S. ANTICIPATE D/C WHEN MEDICALLY STABLE AND PLACEMENT DETERMINED.
--- NOTE | 2021-07-27 17:47 | NUR ---
PATIENT WAS AWAKE AND ALERT THIS SHIFT. PAIN WAS PERSISTANT, BUT TREATED EFFECTIVELY WITH MEDICATION. BS WAS RUNNING ON THE LOW SIDE, SO TWICE THIS SHIFT, JUICE WAS PROVIDED- SHE NEVER REACHED A CRITICAL VALUE. SHE WAS UP TO THE COMMODE WITH ASSIST X 2, BUT BECAME TIRED ONCE UP AND IT TOOK ADDITIONAL PEOPLE (ASSIST X 3) TO GET HER BACK UP AND INTO BED. SHE STARTED TO GET A BIT DIZZY WELL, ONCE SHE WAS UP FOR A WHILE. SHE HAD A DECREASED APPETITE, BUT IS EATING A SANDWHICH HAPPILY AT DINNER TIME.
[2021-07-28 05:24] LABS: BASOPHILS ABSOLUTE AUTO 0.02 K/mm3 (0.00-0.23); BASOPHILS PERCENT AUTO 0 % (0-2); EOSINOPHILS ABSOLUTE AUTO 0.12 K/mm3 (0.00-0.68); EOSINOPHILS PERCENT AUTO 1 % (0-6); Hematocrit 31.1 % (33.0-51.0); Hemoglobin 9.8 g/dL (11.5-16.0); IMMATURE GRAN ABSOLUTE AUTO 0.08 K/mm3 (0.00-0.10); IMMATURE GRAN PERCENT AUTO 1 % (0-1); LYMPHOCYTES PERCENT AUTO 20 % (21-46); MONOCYTES ABSOLUTE AUTO 0.86 K/mm3 (0.16-1.47); MONOCYTES PERCENT AUTO 6 % (4-13); Mean Corpuscular HGB 29.3 pg (26.0-34.0); Mean Corpuscular HGB Conc 31.5 g/dL (31.5-36.5); Mean Corpuscular Volume 93 fL (80-100); NEUTROPHILS ABSOLUTE AUTO 9.72 K/mm3 (1.96-9.15); NEUTROPHILS PERCENT AUTO 72 % (41-73); Platelet Count 711 K/mm3 (150-400); RDW Coefficient Variation 13.3 % (11.7-14.2); RDW Standard Deviation 45.1 fL (35.1-46.3); Red Blood Cell Count 3.35 M/mm3 (3.80-5.20)
[2021-07-28 05:52] LABS: Albumin, Blood 1.3 g/dL (3.4-5.0); Anion Gap 4 mmol/L (6-16); Blood Urea Nitrogen 10 mg/dL (8-24); Bun/Creatinine Ratio 20.1 (12.0-20.0); CO2, Blood 35 mmol/L (21-32); Calcium, Blood 9.3 mg/dL (8.5-10.1); Chloride, Blood 100 mmol/L (98-108); Glomerular Filtration Rate >60 (60-); Glucose, Blood 65 mg/dL (70-99); Magnesium, Blood 1.8 mg/dL (1.6-2.4); Phosphorus, Blood 3.2 mg/dL (2.5-4.9); Potassium, Blood 3.8 mmol/L (3.5-5.5); Sodium, Blood 139 mmol/L (136-145)
--- NOTE | 2021-07-28 06:22 | NUR ---
MANAGER WEALTH MANAGEMENT SUMMARY ADMITTED FOR DKA (RESOLVED). PT IS FULL CODE. SHE IS AWAITING PLACEMENT. PT HAS HISTORY OF ENDOMETRIAL CANCER AND IS AWAITING TOTAL HYSTERECTOMY. SHE IS ABLE TO REPOSITION IN BED ON HER OWN AND ROLLS TO HELP WITH ATTENDS CHANGES. ATTENDS USED AT NIGHT DUE TO PT BEING INCONTINENT AT NIGHT, MOST LIKELY DUE TO MUSCLE RELAXERS. SHE DOES HAVE A WHITE VAGINAL DISCHARGE, BUT NO BLOOD NOTED. NO SLIDING SCALE INSULIN NEEDED DUE TO CBG OF 107 LAST NIGHT. SHE IS ABLE TO USE CALL LIGHT APPROPRIATELY AND MAKE HER NEEDS KNOWN. MEDICATED FOR PAIN X2 AND WITH MUSCLE RELAXER X2.
--- NOTE | 2021-07-28 19:12 | NUR ---
PATIENT APPEARS TO NOT PARTICIPATE IN HER OWN CARE. SHE PREFERS TO NOT BE MOVED OUT OF THE BED, OR MOVED AROUND IN THE BED DUE TO DISCOMFORT. SHE HAD SOME MEDICATION ADJUSTMENTS TODAY, INCLUDING A DECREASE IN LONG ACTING INSULIN, AN INCREASE IN SLIDING SCALE (MEDIUM), AND ADVIL WAS DISCONTINUED AND REPLACED WITH TYLENOL. PATIENT HAS STUMP LOWER EXTREMITIES- EDEMA, TIGHT, NON PITTING. LS CLEAR. HEART SOUNDS APPEAR TO HAVE MURMUR. ACCORDING TO CHILD SUPPORT SPECIALIST AT END OF SHIFT, PATIENT ONLY URINATED ONCE THIS SHIFT. PICC WAS CHANGED TODAY.
[2021-07-29 05:27] LABS: BASOPHILS ABSOLUTE AUTO 0.01 K/mm3 (0.00-0.23); BASOPHILS PERCENT AUTO 0 % (0-2); EOSINOPHILS ABSOLUTE AUTO 0.12 K/mm3 (0.00-0.68); EOSINOPHILS PERCENT AUTO 1 % (0-6); Hematocrit 29.1 % (33.0-51.0); Hemoglobin 9.2 g/dL (11.5-16.0); IMMATURE GRAN ABSOLUTE AUTO 0.05 K/mm3 (0.00-0.10); IMMATURE GRAN PERCENT AUTO 1 % (0-1); LYMPHOCYTES ABSOLUTE AUTO 1.81 K/mm3 (0.84-5.20); LYMPHOCYTES PERCENT AUTO 20 % (21-46); MONOCYTES ABSOLUTE AUTO 0.65 K/mm3 (0.16-1.47); MONOCYTES PERCENT AUTO 7 % (4-13); Mean Corpuscular HGB 29.4 pg (26.0-34.0); Mean Corpuscular HGB Conc 31.6 g/dL (31.5-36.5); Mean Corpuscular Volume 93 fL (80-100); Mean Platelet Volume 9.4 fL (9.1-12.4); NEUTROPHILS ABSOLUTE AUTO 6.49 K/mm3 (1.96-9.15); NEUTROPHILS PERCENT AUTO 71 % (41-73); Platelet Count 625 K/mm3 (150-400); RDW Coefficient Variation 13.2 % (11.7-14.2); RDW Standard Deviation 44.6 fL (35.1-46.3); Red Blood Cell Count 3.13 M/mm3 (3.80-5.20); White Blood Cell Count 9.13 K/mm3 (4.00-11.30)
[2021-07-29 06:15] LABS: Anion Gap 4 mmol/L (6-16); Blood Urea Nitrogen 10 mg/dL (8-24); Bun/Creatinine Ratio 22.8 (12.0-20.0); CO2, Blood 29 mmol/L (21-32); Chloride, Blood 110 mmol/L (98-108); Creatinine, Blood 0.44 mg/dL (0.40-1.00); Glomerular Filtration Rate >60 (60-); Glucose, Blood 130 mg/dL (70-99); Potassium, Blood 3.2 mmol/L (3.5-5.5); Sodium, Blood 143 mmol/L (136-145)
[2021-07-29 06:16] LABS: Calcium, Blood 7.2 mg/dL (8.5-10.1)
--- NOTE | 2021-07-29 07:35 | NUR ---
MUSEUM DIRECTOR SUMMARY PT STILL AWAITING PLACEMENT FOR DC. SHE ATTEMPTED TO HAVE A BM LAST NIGHT ON A BEDPAN WITH NO SUCCESS. PT MEDICATED FOR PAIN X2 PER JUN. PT APPEARS TO BE VERY UNMOTIVATED TO HELP HERSELF AND REQUESTS ASSISTANCE WITH MOST ADLS AND REPOSITIONING DESPITE MOVING WELL DURING BED CHANGES. PT WITH EDEMA TO BLE AND 1+ PITTING EDEMA TO BUE. SHE IS ALERT AND ORIENTED. CBG WAS 218 LAST NIGHT. SLIDING SCALE INSULIN HELD.
--- NOTE | 2021-07-29 16:51 | NUR ---
SHIFT SUMMARY PT AxOx4. PLEASANT WITH CARE. PT REPORTS PAIN IN BODY- SHOULDER, KNEE, LOWER ABDOMEN/UTERUS, BOTH CHRONIC AND ACUTE. MEDICATED PER EMAR. PAIN MEDS INCREASED WITH REPORTED RELIEF. SCANT AMOUNT OF VAGINAL BLOOD NOTED IN BRIEF, R/T ENDOMETRIAL CANCER. PT HAD SHOWER TODAY. PT DECLINED TO WORK WITH PT/OT THIS SHIFT D/T TOO MUCH PAIN. PT STATES SHE WILL GET UP IN CHAIR FOR DINNER. PT REPORTS BEING CONSTIPATED. BOWEL CARE INITIATED. PT GIVEN MAG AND POTASSIUM INFUSION TODAY IN ATTEMPT TO CORRECT ABNORMAL LABS. VITALS REVIEWED. PT CURRENTLY RESTING IN BED WITH CALL LIGHT IN REACH. DENIES NEEDS AT THIS TIME.
--- NOTE | 2021-07-30 05:37 | NUR ---
PATIENT WITH CA PAIN AND MEDICATED PER PT REQUEST. SEE MAR. PATIENT ABLE TO GET UP TO BEDSIDE COMMODE WITH ASSISTANCE. ALL EXTREMITIES ELEVATED WTIH PILLOWS. BLOOD PRESSURE TREND NOTED TO BE HIGH, BP INITIALLY ELEVATED 186/88 HOWEVER DECREASED TO 149/76. NO OTHER CHANGES NOTED.
[2021-07-30 05:43] LABS: Anion Gap 4 mmol/L (6-16); Blood Urea Nitrogen 12 mg/dL (8-24); Bun/Creatinine Ratio 20.5 (12.0-20.0); CO2, Blood 32 mmol/L (21-32); Chloride, Blood 100 mmol/L (98-108); Creatinine, Blood 0.59 mg/dL (0.40-1.00); Glomerular Filtration Rate >60 (60-); Glucose, Blood 183 mg/dL (70-99); Potassium, Blood 4.5 mmol/L (3.5-5.5); Sodium, Blood 136 mmol/L (136-145)
[2021-07-30 05:44] LABS: Calcium, Blood 9.4 mg/dL (8.5-10.1)
[2021-07-30 14:43] LABS: Influenza A, PCR NEGATIVE (NEGATIVE); Influenza B, PCR NEGATIVE (NEGATIVE); Resp Syncytial Virus, PCR NEGATIVE (NEGATIVE); SARS-Cov-2 (COVID-19) PCR, MMC NEGATIVE (NEGATIVE)
--- NOTE | 2021-07-30 15:35 | NUR ---
CALLED LOCATED WITHIN [facility] IN [place] AND PROVIDED PATIENT REPORT TO JOSS OVALLE @ THIS TIME, PLANNED TRANSPORT @ 8950.
[2021-07-30] MEDS ORDERED: AMLO5 PO (15:40)
[2021-07-30] MEDS ORDERED: BASAGLAR K100 UNIT/1 SC (15:41)
[2021-07-30] MEDS ORDERED: HUMALOG KW100 UNIT/1 SC (15:42)
[2021-07-30] MEDS ORDERED: SENN187 PO (15:42)
[2021-07-30] MEDS ORDERED: MIRALAX17 GM PO (15:42)
[2021-07-30] MEDS ORDERED: LISI20 PO (15:42)
[2021-07-30] MEDS ORDERED: VITAMIN D5000 UNIT PO (15:43)
[2021-07-30] MEDS ORDERED: OXYC10ER PO (15:43)
--- NOTE | 2021-07-30 17:19 | NUR ---
DISCHARGE PT A&O X4 @ TIME OF DC. TRANSPORT ARRIVED AROUND 1645, PT TRANSFERED TO [facility] [place] VIA GURNEY. POWERGLIDE AND IV DC'ED PRIOR TO DC. PERSONAL BELONGINGS IN TOW, REPORT CALLED IN. VSS.
== END 2021-07-30 16:55 | DRG 871 ==
LOC: ER 08:02 → ICUW 11:45 → ICUE 13:00 → MEDS 07-20 17:53
PROVIDERS: Internal Medicine; Physician Assistant; ADMIT Internal Medicine
DX: A40.9 Streptococcal sepsis, unspecified (principal); E11.10 Type 2 diabetes mellitus with ketoacidosis without coma; G92.8 Other toxic encephalopathy; E87.1 Hypo-osmolality and hyponatremia; E66.9 Obesity, unspecified; G43.909 Migraine, unspecified, not intractable, without status migrainosus; D75.839 Thrombocytosis, unspecified; K59.00 Constipation, unspecified; E83.42 Hypomagnesemia; E88.09 Other disorders of plasma-protein metabolism, not elsewhere classified; I10 Essential (primary) hypertension; J45.909 Unspecified asthma, uncomplicated; M62.838 Other muscle spasm; E86.0 Dehydration; Z66 Do not resuscitate; C54.1 Malignant neoplasm of endometrium; D72.829 Elevated white blood cell count, unspecified; E87.6 Hypokalemia; K21.9 Gastro-esophageal reflux disease without esophagitis; M79.7 Fibromyalgia; Z88.6 Allergy status to analgesic agent; Z88.5 Allergy status to narcotic agent; Z91.09 Other allergy status, other than to drugs and biological substances; Z79.899 Other long term (current) drug therapy; Z91.14 Patient's other noncompliance with medication regimen; Z87.11 Personal history of peptic ulcer disease; Z90.49 Acquired absence of other specified parts of digestive tract
CPT/HCPCS: 0241U; 36415; 51701; 51702; 71045; 80048; 80053; 80069; 81001; 82010; 82330; 82550; 82553; 82803; 82947; 83036; 83605; 83735; 84100; 84484; 84550; 85025; 85651; 86140; 87040; 87086; 87147; 93005; 93010; 93306; 94760; 96365; 96375; 96376; 97110; 97112; 97162; 97166; 97530; 97535; 99285-25; A9270; C1751; J0360; J0696; J1650; J1815; J2270; J2543; J3010; J3370; J3475; J3480; J7030; J7042; J7050; J7060; J7120

== ENCOUNTER → 2022-03-02 | Outpatient (CLI) | payer MEDICARE ==
[~2022-03-02] MED LIST changes: +AMLO5 PO; +BASAGLAR K100 UNIT/1 SC; +HUMALOG KW100 UNIT/1 SC; +LISI20 PO; +MIRALAX17 GM PO; +OXYC10ER PO; +SENN187 PO; +TRAM50 PO; +VITAMIN D5000 UNIT PO
== END | disposition home or self-care (01) ==
DX: E11.9 Type 2 diabetes mellitus without complications (principal)

== ENCOUNTER 2024-01-04 08:47 | Inpatient (IN) | payer MEDICARE, OTHER ==
[~2024-01-04] VITALS: Ht 167.6 cm; Wt 142.0 kg
[2024-01-04] VITALS (19 sets, daily range): BP systolic 127–172; BP diastolic 66–129
[~2024-01-04 08:47] MED LIST changes: +Aspirin 81 MG Chew PO ONE; +Heparin Sodium,Porcine 5,000 UNIT/0.5 ML SDV SC ONE; +Nitroglycerin 0.4 MG SUBL SL ONE; +Ticagrelor 90 MG TABLET PO ONE
[2024-01-04] MEDS ORDERED: Nitroglycerin 0.4 MG SUBL SL PRN ×2 (08:55→10:25)
[2024-01-04] MEDS ORDERED: Morphine Sulfate 4 MG/1 ML Injection ONE (08:58)
[2024-01-04] MEDS ORDERED: Heparin Sodium 1000 Units/ML 10ML MDV ONE (09:01)
[2024-01-04] MEDS ORDERED: NS 250 ML IV ONE (09:01)
[2024-01-04] MEDS ORDERED: Nitroglycerin 2 MG/20 ML BTL ONE (09:02)
[2024-01-04] MEDS ORDERED: NS 1,000 ML IV ONE ×3 (09:02→09:05)
[2024-01-04] MEDS ORDERED: NiCARdipine HCL 1,000 MCG/5 ML SYR ONE (09:02)
[2024-01-04] MEDS ORDERED: Midazolam HCl 1MG / ML 2ML Vial ONE (09:04)
[2024-01-04] MEDS ORDERED: FentaNYL Citrate 50 MCG/ML 2 ML Injection ONE (09:05)
[2024-01-04] MEDS ORDERED: Morphine Sulfate 4 MG/1 ML Injection IV ONE (09:05)
[2024-01-04 09:16] LABS: Calcium, Ionized (POC) 1.26 mmol/L (1.10-1.46); Chloride (POC) 105 mmol/L (98-108); Creatinine (POC) 1.2 mg/dL (0.6-1.0); Glucose (ISTAT POC) 291 mg/dL (70-99); Hemoglobin (POC) 12.6 g/dL (12.0-16.0); Potassium (POC) 4.4 mmol/L (3.5-5.5); Sodium (POC) 136 mmol/L (135-148); Total CO2 (POC) 23 mmol/L (21-32)
[2024-01-04 09:26] LABS: BASOPHILS ABSOLUTE AUTO 0.03 K/mm3 (0.00-0.23); BASOPHILS PERCENT AUTO 0 % (0-2); EOSINOPHILS ABSOLUTE AUTO 0.14 K/mm3 (0.00-0.68); EOSINOPHILS PERCENT AUTO 1 % (0-6); Hematocrit 38.4 % (33.0-51.0); IMMATURE GRAN ABSOLUTE AUTO 0.06 K/mm3 (0.00-0.10); IMMATURE GRAN PERCENT AUTO 1 % (0-1); LYMPHOCYTES ABSOLUTE AUTO 2.25 K/mm3 (0.84-5.20); LYMPHOCYTES PERCENT AUTO 23 % (21-46); MONOCYTES PERCENT AUTO 5 % (4-13); Mean Corpuscular HGB 31.4 pg (26.0-34.0); Mean Corpuscular HGB Conc 33.9 g/dL (31.5-36.5); Mean Corpuscular Volume 93 fL (80-100); Mean Platelet Volume 10.4 fL (9.1-12.4); NEUTROPHILS PERCENT AUTO 69 % (41-73); Platelet Count 214 K/mm3 (150-400); RDW Coefficient Variation 12.8 % (11.7-14.2); RDW Standard Deviation 43.7 fL (35.1-46.3); Red Blood Cell Count 4.14 M/mm3 (3.80-5.20); White Blood Cell Count 9.68 K/mm3 (4.00-11.30)
[2024-01-04] MEDS ORDERED: Atropine Sulfate 0.1 MG/ML 10ML SYR ONE (09:32)
[2024-01-04] MEDS ORDERED: Phenylephrine HCl 100 MCG/ML-NS 10MLSYR (1MG/10ML) ONE (09:32)
[2024-01-04 09:34] LABS: Anti-Xa UFH, PHA Monitoring <0.10 IU/mL; Prothrombin Time Results 10.7 Sec (9.7-11.5)
[2024-01-04 09:45] LABS: Alanine Aminotransfer (ALT/SGP 38 U/L (12-78); Alk Phos 57 U/L (50-136); Anion Gap 17 mmol/L (3-11); Aspartate Aminotrans (AST/SGOT 27 U/L (12-37); Bilirubin, Total 0.6 mg/dL (0.1-1.0); Blood Urea Nitrogen 32 mg/dL (8-24); Bun/Creatinine Ratio 29.4 (12.0-20.0); CHOL/HDL RATIO 5.3; CO2, Blood 21 mmol/L (21-32); Calcium, Blood 11.1 mg/dL (8.5-10.1); Chloride, Blood 105 mmol/L (98-108); Cholesterol 245 mg/dL (50-200); Creatinine, Blood 1.09 mg/dL (0.40-1.00); Glomerular Filtration Rate 55 (60-); Glucose, Blood 290 mg/dL (70-99); HDL Cholesterol 46 mg/dL (>39); LDL/HDL RATIO 3.3; Low Density Lipoprotein Chol 153 mg/dL (0-110); Magnesium, Blood 1.7 mg/dL (1.6-2.4); Potassium, Blood 4.4 mmol/L (3.5-5.5); Sodium, Blood 139 mmol/L (136-145); Triglycerides 232 mg/dL (30-160); Very Low Density Lipoprot Chol 46 mg/dL (6-32)
[2024-01-04] MEDS ORDERED: NS 1,000 ML IV SCH (10:25)
--- NOTE | 2024-01-04 10:40 | NUR ---
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 PT IS AWAKE, ALERT, AND ORIENTED. PT DENIES CHEST PAIN OR PRESSURE. PT WITH TR BAND IN PLACE TO RIGHT RADIAL SITE, NO BLEEDING, OR HEMATOMA PRESENT. DISTAL PULSE PRESENT. VITAL SIGNS STABLE. PT ON ROOM AIR. NS INFUSING AT 75 ML/HR.
[2024-01-04] MEDS ORDERED: FLU VACC TS2024-25(6MOS UP)/PF 45 MCG/0.5 ML SYRINGE IM SCH (10:55)
[2024-01-04] MEDS ORDERED: Ondansetron HCl 2 MG / ML 2ML Vial IV PRN (10:55)
[2024-01-04] MEDS ORDERED: Irbesartan 150 MG Tab PO SCH (11:00)
[2024-01-04] MEDS ORDERED: Carvedilol 3.125 MG Tab PO SCH (11:00)
[2024-01-04 11:01] LABS: BASOPHILS ABSOLUTE AUTO 0.02 K/mm3 (0.00-0.23); BASOPHILS PERCENT AUTO 0 % (0-2); EOSINOPHILS ABSOLUTE AUTO 0.05 K/mm3 (0.00-0.68); EOSINOPHILS PERCENT AUTO 1 % (0-6); Hemoglobin 12.5 g/dL (11.5-16.0); IMMATURE GRAN ABSOLUTE AUTO 0.03 K/mm3 (0.00-0.10); IMMATURE GRAN PERCENT AUTO 0 % (0-1); LYMPHOCYTES ABSOLUTE AUTO 1.13 K/mm3 (0.84-5.20); LYMPHOCYTES PERCENT AUTO 13 % (21-46); MONOCYTES ABSOLUTE AUTO 0.35 K/mm3 (0.16-1.47); MONOCYTES PERCENT AUTO 4 % (4-13); Mean Corpuscular HGB 31.6 pg (26.0-34.0); Mean Corpuscular HGB Conc 33.8 g/dL (31.5-36.5); Mean Corpuscular Volume 94 fL (80-100); Mean Platelet Volume 10.4 fL (9.1-12.4); NEUTROPHILS ABSOLUTE AUTO 7.33 K/mm3 (1.96-9.15); NEUTROPHILS PERCENT AUTO 82 % (41-73); Platelet Count 212 K/mm3 (150-400); RDW Coefficient Variation 12.7 % (11.7-14.2); RDW Standard Deviation 43.8 fL (35.1-46.3); Red Blood Cell Count 3.95 M/mm3 (3.80-5.20); White Blood Cell Count 8.91 K/mm3 (4.00-11.30)
[2024-01-04] MEDS ORDERED: LEVSOD100 PO (11:03)
[2024-01-04] MEDS ORDERED: HYDR10 PO (11:03)
[2024-01-04] MEDS ORDERED: UBID10 PO (11:04)
[2024-01-04] MEDS ORDERED: IBUP600 PO (11:04)
[2024-01-04] MEDS ORDERED: FOLI1 PO (11:05)
[2024-01-04] MEDS ORDERED: MULTI-VITAMIN1 EAC2 PO (11:05)
[2024-01-04] MEDS ORDERED: Insulin Regular 100 UNIT/ML 10ML Vial SC SCH (11:30)
[2024-01-04] MEDS ORDERED: HydrALAZINE HCl 20 MG / ML 1ML Vial IV PRN (11:55)
--- NOTE | 2024-01-04 17:42 | NUR ---
SHIFT SUMMARY NO ACUTE CHANGES THIS SHIFT. PT HAS REMAINED AWAKE, ALERT, AND ORIENTED. PT HAS DENIED ANY CHEST PAIN OR DISCOMFORT. VITAL SIGNS REMAIN STABLE. PT ON ROOM AIR. RIGHT RADIAL ACCESS SITE C/D/I WITH OPSITE AND ARM BOARD IN PLACE. PT UP TO BSC TO VOID WITH MINIMAL ASSISTANCE. NS INFUSING AT 75 ML/HR. PT TAKING PO INTAKE WELL. WILL CONTINUE TO MONITOR AND REPORT OFF TO ONCOMING RN.
[2024-01-04] MEDS ORDERED: Ticagrelor 90 MG TABLET PO SCH (21:00)
[2024-01-04] MEDS ORDERED: Ezetimibe 10 MG Tab PO SCH (21:00)
[2024-01-04] MEDS ORDERED: Insulin Glargine-Yfgn 100 Unit/mL 3 ML SYR SC SCH ×2 (21:00)
[2024-01-05] VITALS (11 sets, daily range): BP systolic 122–182; BP diastolic 66–102
[2024-01-05 03:40] LABS: BASOPHILS ABSOLUTE AUTO 0.03 K/mm3 (0.00-0.23); BASOPHILS PERCENT AUTO 0 % (0-2); EOSINOPHILS ABSOLUTE AUTO 0.15 K/mm3 (0.00-0.68); EOSINOPHILS PERCENT AUTO 2 % (0-6); Hematocrit 34.4 % (33.0-51.0); Hemoglobin 11.8 g/dL (11.5-16.0); IMMATURE GRAN ABSOLUTE AUTO 0.02 K/mm3 (0.00-0.10); IMMATURE GRAN PERCENT AUTO 0 % (0-1); LYMPHOCYTES ABSOLUTE AUTO 2.81 K/mm3 (0.84-5.20); LYMPHOCYTES PERCENT AUTO 35 % (21-46); MONOCYTES ABSOLUTE AUTO 0.72 K/mm3 (0.16-1.47); MONOCYTES PERCENT AUTO 9 % (4-13); Mean Corpuscular HGB Conc 34.3 g/dL (31.5-36.5); Mean Corpuscular Volume 93 fL (80-100); Mean Platelet Volume 10.4 fL (9.1-12.4); NEUTROPHILS ABSOLUTE AUTO 4.21 K/mm3 (1.96-9.15); NEUTROPHILS PERCENT AUTO 53 % (41-73); Platelet Count 219 K/mm3 (150-400); RDW Coefficient Variation 12.8 % (11.7-14.2); RDW Standard Deviation 43.8 fL (35.1-46.3); Red Blood Cell Count 3.69 M/mm3 (3.80-5.20); White Blood Cell Count 7.94 K/mm3 (4.00-11.30)
[2024-01-05 04:02] LABS: Alanine Aminotransfer (ALT/SGP 34 U/L (12-78); Albumin, Blood 3.3 g/dL (3.4-5.0); Alk Phos 47 U/L (50-136); Anion Gap 12 mmol/L (3-11); Aspartate Aminotrans (AST/SGOT 36 U/L (12-37); Bilirubin, Total 0.4 mg/dL (0.1-1.0); Blood Urea Nitrogen 23 mg/dL (8-24); Bun/Creatinine Ratio 23.2 (12.0-20.0); CHOL/HDL RATIO 5.4; CO2, Blood 23 mmol/L (21-32); Calcium, Blood 9.4 mg/dL (8.5-10.1); Chloride, Blood 109 mmol/L (98-108); Cholesterol 201 mg/dL (50-200); Creatinine, Blood 0.99 mg/dL (0.40-1.00); Globulin, Blood 3.4 g/dL (2.2-4.0); Glomerular Filtration Rate 62 (60-); Glucose, Blood 130 mg/dL (70-99); HDL Cholesterol 37 mg/dL (>39); LDL/HDL RATIO 3.4; Low Density Lipoprotein Chol 126 mg/dL (0-110); Potassium, Blood 3.8 mmol/L (3.5-5.5); Sodium, Blood 140 mmol/L (136-145); Total Protein, Blood 6.7 g/dL (6.4-8.2); Triglycerides 190 mg/dL (30-160); Very Low Density Lipoprot Chol 38 mg/dL (6-32)
--- NOTE | 2024-01-05 05:13 | NUR ---
SHIFT SUMMERY PT IS ALERT AND ORIENTED X4. SHE IS AMBULATORY TO BEDSIDE COMMODE W/OUT ASSIST. RIGHT RADIAL SITE WNL. SR ON THE MACHINE FELLER. BP WNL. NO COMPLAINTS OF CHEST PAIN/PRESSURE OVERNIGHT. IVS SL. PT OXYGEN SAT IS 97% ON ROOM AIR. NO ACUTE CHANGES OVERNIGHT
--- NOTE | 2024-01-05 07:00 | NUR ---
ASSUMPTION OF CARE PT IS AWAKE DURING BEDSIDE REPORT. R RADIAL ACCESS SITE VISUALIZED WITH PATRICE COREAS. TISSUE SOFT, NONTENDER, NO ACTIVE BLEEDING OR HEMATOMA. CLEAR TEGADERM C/D/I AND ARMBOARD IN PLACE. PT IS A&OX4, PARTICIPATES IN CONVERSATION AND PERFORMS ADLS INDEPENDENTLY. SHE IS ON RA, LUNGS ARE CLEAR. NSR ON MONITOR WITH RATE IN 50S-60S. MAP >65. PT DENIES CP AND STS SYMPTOMS HAVE BEEN RESOLVED SINCE PROCEDURE. PT AMBULATES WITH STEADY GAIT TO TOILET AND VOIDS 300ML. PT EXPRESSES HOPE TO GO HOME TODAY. PT BACK IN BED, REMOTE AND CALL LIGHT WITHIN REACH.
[2024-01-05] MEDS ORDERED: AmLODIPine Besylate 5 MG Tab PO SCH ×2 (09:00→21:00)
[2024-01-05] MEDS ORDERED: Irbesartan 150 MG Tab PO SCH (09:00)
[2024-01-05] MEDS ORDERED: Heparin Sodium,Porcine 5,000 UNIT/0.5 ML SDV SC SCH (09:00)
[2024-01-05] MEDS ORDERED: Aspirin 81 MG TabEC PO SCH (09:00)
[2024-01-05] MEDS ORDERED: Spironolactone 25 MG Tab PO SCH (09:00)
[2024-01-05] MEDS ORDERED: Empagliflozin 25 MG TAB PO SCH (09:00)
[2024-01-05] MEDS ORDERED: Lisinopril 20 MG Tab PO SCH ×2 (09:00→21:00)
[2024-01-05] MEDS ORDERED: Empagliflozin 10 MG TAB PO SCH (09:00)
[2024-01-05] MEDS ORDERED: Aspirin 81 MG Chew PO SCH (09:33)
[2024-01-05] MEDS ORDERED: CARV6.25 PO (10:15)
[2024-01-05] MEDS ORDERED: LEVOTHYROXINE50 MC9 PO (10:16)
[2024-01-05] MEDS ORDERED: TRULICITY3 MG/0.5 M SC (10:17)
[2024-01-05] MEDS ORDERED: VITAMIN D5000 UNIT PO (10:26)
[2024-01-05] MEDS ORDERED: GLUC500 PO (10:27)
[2024-01-05] MEDS ORDERED: MERIBIN5 MG PO (10:27)
[2024-01-05] MEDS ORDERED: Lisinopril 10 MG Tab PO ONE (10:30)
[2024-01-05] MEDS ORDERED: AmLODIPine Besylate 5 MG Tab PO ONE (10:30)
[2024-01-05] MEDS ORDERED: Lisinopril 20 MG Tab PO ONE (10:45)
--- NOTE | 2024-01-05 11:07 | NUR ---
UPDATE PT EXPRESSES CONCERN DURING MORNING MED PASS RELATED TO DOSING, SIDE EFFECTS, AND PREVIOUS EXPERIENCES WITH SIDE EFFECTS. CARDIOLOGY UPDATED AND AT BEDSIDE. PT BECOMES AGREEABLE TO MAJORITY OF CARDIAC REGIMEN AND MEDICATIONS GIVEN PER EMAR.
[2024-01-05] MEDS ORDERED: CARV3.125 PO (12:03)
[2024-01-05] MEDS ORDERED: ASPI81CH PO (12:10)
[2024-01-05] MEDS ORDERED: NITR.4SL SL (12:11)
[2024-01-05] MEDS ORDERED: EZET10 PO (12:11)
[2024-01-05] MEDS ORDERED: SPIR25 PO (12:12)
[2024-01-05] MEDS ORDERED: INVOKANA300 MG PO (12:13)
[2024-01-05] MEDS ORDERED: TICA90TA PO (12:13)
--- NOTE | 2024-01-05 13:19 | NUR ---
DISCHARGE PT DISCUSSED PLAN OF CARE WITH HOSPITALIST AND WOOD MILLING MACHINE HAND AND VERBALIZES UNDERSTANDING. PT PROVIDED DISCHARGE PAPERWORK AND EDUCATION, LAB ORDER, AND BRILINTA COUPON. PRESCRIPTIONS FAXED TO [facility]. PT DRESSED SELF INDEPENDENTLY AND GATHERED OWN BELONGINGS INCLUDING PHONE AND TABLET. PT PROVIDED WHEELCHAIR TRANSPORT TO FRIEND'S CAR BY UGO COREAS.
== END 2024-01-05 13:05 | disposition home or self-care (01) | DRG 322 ==
LOC: ER 08:47 → ICUE 09:08
PROVIDERS: Student in an Organized Health Care Education/Training Program; ADMIT Internal Medicine Cardiovascular Disease
PROC: 027034Z Dilation of Coronary Artery, One Artery with Drug-eluting Intraluminal Device, Percutaneous Approach (ICD-10-PCS; principal; 2024-01-04)
PROC: B2111ZZ Fluoroscopy of Multiple Coronary Arteries using Low Osmolar Contrast (ICD-10-PCS; 2024-01-04)
PROC: 4A023N7 Measurement of Cardiac Sampling and Pressure, Left Heart, Percutaneous Approach (ICD-10-PCS; 2024-01-04)
DX: I21.19 ST elevation (STEMI) myocardial infarction involving other coronary artery of inferior wall (principal); Z68.43 Body mass index [BMI] 50.0-59.9, adult; E11.9 Type 2 diabetes mellitus without complications; I10 Essential (primary) hypertension; E78.5 Hyperlipidemia, unspecified; E03.9 Hypothyroidism, unspecified; E66.01 Morbid (severe) obesity due to excess calories; M81.0 Age-related osteoporosis without current pathological fracture; Z79.4 Long term (current) use of insulin; K21.9 Gastro-esophageal reflux disease without esophagitis; C54.1 Malignant neoplasm of endometrium; M79.7 Fibromyalgia; J45.909 Unspecified asthma, uncomplicated; G43.909 Migraine, unspecified, not intractable, without status migrainosus; M17.0 Bilateral primary osteoarthritis of knee; Z90.49 Acquired absence of other specified parts of digestive tract
CPT/HCPCS: 36415; 71045; 76937; 80047; 80053; 80061; 82947; 83735; 84484; 85014; 85025; 85347; 85520; 85610; 85730; 86850; 86900; 86901; 93005; 93010; 93306; 93458; 94760; 99152; 99153; 99285-25; A9270; C1725; C1769; C1874; C1887; C1894; C9606; J0461; J1644; J1815; J2250; J2270; J2371; J3010; J7030; J7050; Q9967

== ENCOUNTER → 2025-02-25 | Outpatient (CLI) | payer MEDICARE, OTHER ==
[~2025-02-25] MED LIST changes: +ASPI81CH PO; -Aspirin 81 MG Chew PO ONE; +CARV3.125 PO; +CARV6.25 PO; +EZET10 PO; +FOLI1 PO; +GLUC500 PO; +HYDR10 PO; -Heparin Sodium,Porcine 5,000 UNIT/0.5 ML SDV SC ONE; +IBUP600 PO; +INVOKANA300 MG PO; +LEVOTHYROXINE50 MC9 PO; +LEVSOD100 PO; +MERIBIN5 MG PO; +MULTI-VITAMIN1 EAC2 PO; +NITR.4SL SL; -Nitroglycerin 0.4 MG SUBL SL ONE; +SPIR25 PO; +TICA90TA PO; +TRULICITY3 MG/0.5 M SC; -Ticagrelor 90 MG TABLET PO ONE; +UBID10 PO
[2025-02-25 16:15] LABS: BASOPHILS ABSOLUTE AUTO 0.02 K/mm3 (0.00-0.23); BASOPHILS PERCENT AUTO 0 % (0-2); EOSINOPHILS ABSOLUTE AUTO 0.19 K/mm3 (0.00-0.68); EOSINOPHILS PERCENT AUTO 3 % (0-6); Hematocrit 41.8 % (33.0-51.0); Hemoglobin 13.6 g/dL (11.5-16.0); IMMATURE GRAN ABSOLUTE AUTO 0.02 K/mm3 (0.00-0.10); IMMATURE GRAN PERCENT AUTO 0 % (0-1); LYMPHOCYTES ABSOLUTE AUTO 1.92 K/mm3 (0.84-5.20); LYMPHOCYTES PERCENT AUTO 29 % (21-46); MONOCYTES ABSOLUTE AUTO 0.52 K/mm3 (0.16-1.47); MONOCYTES PERCENT AUTO 8 % (4-13); Mean Corpuscular HGB Conc 32.5 g/dL (31.5-36.5); Mean Corpuscular Volume 94 fL (80-100); NEUTROPHILS ABSOLUTE AUTO 4.01 K/mm3 (1.96-9.15); NEUTROPHILS PERCENT AUTO 60 % (41-73); NRBC ABSOLUTE 0.00 K/mm3 (0.00-0.02); NRBC Auto 0.0 /100 WBC (0.0-0.2); Platelet Count 233 K/mm3 (150-400); RDW Coefficient Variation 13.6 % (11.7-14.2); RDW Standard Deviation 46.5 fL (35.1-46.3)
[2025-02-25 18:49] LABS: Alanine Aminotransfer (ALT/SGP 44.0 U/L (12-78); Albumin, Blood 4.1 g/dL (3.4-5.0); Albumin/Globulin Ratio 1.1 (0.8-1.8); Anion Gap 9.0 mmol/L (3-11); Aspartate Aminotrans (AST/SGOT 21.0 U/L (12-37); Bilirubin, Total 0.5 mg/dL (0.1-1.0); Blood Urea Nitrogen 26.0 mg/dL (8-24); CO2, Blood 25.0 mmol/L (21-32); Calcium, Blood 10.0 mg/dL (8.5-10.1); Chloride, Blood 107.0 mmol/L (98-108); Creatinine, Blood 1.05 mg/dL (0.40-1.00); Globulin, Blood 3.8 g/dL (2.2-4.0); Glucose, Blood 147.0 mg/dL (70-99); Potassium, Blood 4.2 mmol/L (3.5-5.5); Sodium, Blood 137.0 mmol/L (136-145); Thyroid Stimulating Hormone 2.24 uIU/mL (0.360-4.800); Total Protein, Blood 7.9 g/dL (6.4-8.2)
== END ==
LOC: LAB SHORT 15:02 → LAB 15:02
PROVIDERS: Student in an Organized Health Care Education/Training Program
DX: E11.9 Type 2 diabetes mellitus without complications (principal); E03.9 Hypothyroidism, unspecified
CPT/HCPCS: 80053; 83036; 84443; 85025

== ENCOUNTER 2025-03-22 11:30 | Inpatient (IN) | payer MEDICARE ==
[~2025-03-22] VITALS: Ht 172.7 cm; Wt 144.7 kg
[~2025-03-22 11:30] MED LIST changes: -ASPI81CH PO; +Aspir 8181 MG PO; -INVOKANA300 MG PO
[2025-03-22 12:26] LABS: BASOPHILS ABSOLUTE AUTO 0.02 K/mm3 (0.00-0.23); BASOPHILS PERCENT AUTO 0 % (0-2); EOSINOPHILS ABSOLUTE AUTO 0.12 K/mm3 (0.00-0.68); EOSINOPHILS PERCENT AUTO 2 % (0-6); Hematocrit 34.7 % (33.0-51.0); Hemoglobin 11.4 g/dL (11.5-16.0); IMMATURE GRAN ABSOLUTE AUTO 0.02 K/mm3 (0.00-0.10); IMMATURE GRAN PERCENT AUTO 0 % (0-1); LYMPHOCYTES ABSOLUTE AUTO 1.36 K/mm3 (0.84-5.20); LYMPHOCYTES PERCENT AUTO 17 % (21-46); MONOCYTES ABSOLUTE AUTO 0.66 K/mm3 (0.16-1.47); MONOCYTES PERCENT AUTO 8 % (4-13); Mean Corpuscular HGB Conc 32.9 g/dL (31.5-36.5); Mean Corpuscular Volume 96 fL (80-100); NEUTROPHILS ABSOLUTE AUTO 5.93 K/mm3 (1.96-9.15); NEUTROPHILS PERCENT AUTO 73 % (41-73); NRBC ABSOLUTE 0.00 K/mm3 (0.00-0.02); NRBC Auto 0.0 /100 WBC (0.0-0.2); Platelet Count 272 K/mm3 (150-400); RDW Coefficient Variation 13.9 % (11.7-14.2); RDW Standard Deviation 49.6 fL (35.1-46.3)
[2025-03-22 12:46] LABS: Alanine Aminotransfer (ALT/SGP 21.0 U/L (12-78); Albumin, Blood 3.2 g/dL (3.4-5.0); Albumin/Globulin Ratio 0.8 (0.8-1.8); Anion Gap 7.0 mmol/L (3-11); Aspartate Aminotrans (AST/SGOT 9.0 U/L (12-37); Bilirubin, Total 0.5 mg/dL (0.1-1.0); Blood Urea Nitrogen 22.0 mg/dL (8-24); C-Reactive Protein, High Sens. 68.3 mg/L (0.000-3.000); CO2, Blood 26.0 mmol/L (21-32); Calcium, Blood 9.2 mg/dL (8.5-10.1); Chloride, Blood 111.0 mmol/L (98-108); Creatinine, Blood 1.12 mg/dL (0.40-1.00); Globulin, Blood 4.0 g/dL (2.2-4.0); Glucose, Blood 151.0 mg/dL (70-99); Potassium, Blood 3.7 mmol/L (3.5-5.5); Sodium, Blood 140.0 mmol/L (136-145); Total Protein, Blood 7.2 g/dL (6.4-8.2)
[2025-03-22] MEDS ORDERED: Ondansetron HCl 2 MG / ML 2ML Vial IV PRN (19:25)
[2025-03-22] MEDS ORDERED: FLU VACC TS2025(65UP)/MF59C/PF 45 MCG/0.5 ML SYRINGE IM SCH (19:35)
[2025-03-22] MEDS ORDERED: Lactobacil 2-S.Thermo-Bifido 1 1 Cap PO SCH (21:00)
[2025-03-22] MEDS ORDERED: NS 250 ML IV PRN (21:10)
--- NOTE | 2025-03-22 21:29 | NUR ---
THIS RN CALLED ED AND RECEIVED REPORT FROM JOSS MOORE
[2025-03-22 22:08] VITALS: BP 152/90
[2025-03-23] MEDS ORDERED: Clindamycin 900mg in D5W 50ML 50 ML IV SCH
[2025-03-23 04:06] VITALS: BP 162/74
[2025-03-23] MEDS ORDERED: PRALUENT P150 MG/1 M SC (04:33)
[2025-03-23] MEDS ORDERED: CLOP75 PO (04:44)
[2025-03-23] MEDS ORDERED: JARDIANCE25 MG PO (05:26)
[2025-03-23 06:36] LABS: BASOPHILS ABSOLUTE AUTO 0.02 K/mm3 (0.00-0.23); BASOPHILS PERCENT AUTO 0 % (0-2); EOSINOPHILS ABSOLUTE AUTO 0.13 K/mm3 (0.00-0.68); EOSINOPHILS PERCENT AUTO 2 % (0-6); Hematocrit 29.2 % (33.0-51.0); Hemoglobin 9.6 g/dL (11.5-16.0); IMMATURE GRAN ABSOLUTE AUTO 0.02 K/mm3 (0.00-0.10); IMMATURE GRAN PERCENT AUTO 0 % (0-1); LYMPHOCYTES ABSOLUTE AUTO 1.14 K/mm3 (0.84-5.20); LYMPHOCYTES PERCENT AUTO 19 % (21-46); MONOCYTES ABSOLUTE AUTO 0.57 K/mm3 (0.16-1.47); MONOCYTES PERCENT AUTO 9 % (4-13); Mean Corpuscular HGB Conc 32.9 g/dL (31.5-36.5); Mean Corpuscular Volume 95 fL (80-100); NEUTROPHILS ABSOLUTE AUTO 4.27 K/mm3 (1.96-9.15); NEUTROPHILS PERCENT AUTO 70 % (41-73); NRBC ABSOLUTE 0.00 K/mm3 (0.00-0.02); NRBC Auto 0.0 /100 WBC (0.0-0.2); Platelet Count 226 K/mm3 (150-400); RDW Coefficient Variation 14.1 % (11.7-14.2); RDW Standard Deviation 49.0 fL (35.1-46.3)
--- NOTE | 2025-03-23 06:43 | NUR ---
SHIFT SUMMARY: PT ARRIVED TO [facility] AT 194 FROM THE ED. SHE IS AOX4, COOPERATIVE AND VERY PLEASANT. COMMUNICATES NEEDS APPROPRIATELY. SHE HAS CRUTCHES WITH HER AND WAS ABLE TO STAND AND PIVOT TO THE BED IN HER ROOM FROM THE ED TRANSPORT BED. HER GAIT IS WEAK AND UNSTEADY DUE TO A LEFT FOOT DIABETIC ULCER ON HER HEEL AND CELLULITIS IN BLE. PT IS NPO AND HAS A CONSULT WITH POIATRY TODAY. PT IS DIABETIC (TYPE 2) BUT STATES SHE DOES NOT TAKE INSULIN TO MANAGE HER DIABETES AND REFUSES TO TAKE INSULIN WHILE IN THE HOSPITAL. DR. FRANKLIN HAS BEEN NOTIFIED OF THIS. PT DENIES ANY PAIN OR NEED FOR PAIN RELIEF AT THIS TIME AND DENIES ANY CHEST PAIN OR PRESSURE. NO ACUTE EVENTS THIS SHIFT. PT IS CURRENTLY RESTING IN BED LISTENING TO AN AUDIOBOOK, BEDSIDE TABLE AND CALL LIGHT WITHIN REACH.
[2025-03-23 07:00] LABS: Anion Gap 7.0 mmol/L (3-11); Blood Urea Nitrogen 21.0 mg/dL (8-24); CO2, Blood 25.0 mmol/L (21-32); Calcium, Blood 8.7 mg/dL (8.5-10.1); Chloride, Blood 112.0 mmol/L (98-108); Creatinine, Blood 1.02 mg/dL (0.40-1.00); Glucose, Blood 165.0 mg/dL (70-99); Potassium, Blood 3.6 mmol/L (3.5-5.5); Sodium, Blood 140.0 mmol/L (136-145)
[2025-03-23 07:54] VITALS: BP 163/79
[2025-03-23] MEDS ORDERED: CHLO25B PO (09:34)
[2025-03-23] MEDS ORDERED: Enoxaparin 40 MG/0.4 ML SYR SC SCH (12:00)
[2025-03-23 12:57] LABS: Ferritin, Serum 224.0 ng/mL (8-252); Total Iron Binding Capacity 297.0 ug/dL (250-450)
[2025-03-23 14:57] VITALS: BP 176/92
[2025-03-23] MEDS ORDERED: Insulin Human Lispro 100 Units/ML 3ML Syringe SC SCH ×2 (16:30)
--- NOTE | 2025-03-23 17:30 | NUR ---
SUMMARY- AAOX4. PT ON RA. SBA. ALL WOUND CARE PERFORMED PER JOAN SAHU'S WOUND CARE ORDERS. PT IS NOT ADHERING TO ADA DIET. EDUCATION PROVIDED. PT IS OCCASIONALLY REFUSING HELP TO THE BATHROOM/SHOWER DESPITE PT BEING A HIGH FALL RISK. PT EDUCATED. NO ACUTE EVENTS THIS SHIFT.
[2025-03-23 19:12] VITALS: BP 131/53
[2025-03-24 04:45] VITALS: BP 172/66
--- NOTE | 2025-03-24 06:28 | NUR ---
SHIFT SUMMARY NOC PT A/O X 4. PLEASANT AND COOPERATIVE WITH CARE. VSS. HS CBG 218. PT BLE WOUND DRESSING ARE C/D/I, HEEL PROTECTORS ARE TOO SMALL TO BE PLACED OVER DRESSINGS, SO PT HAS PILLOWS ELEVATING HEELS TO PREVENT FURTHER PRESSURE INJURIES. PT RECIEVED IV ABX PER EMAR. PT HAS POWERGLIDE IN LFA THAT DRAWS. PT CURRENTLY RESTING WITH BED IN LOWEST POSITION, AND CALL LIGHT WITHIN REACH.
[2025-03-24 07:00] LABS: BASOPHILS ABSOLUTE AUTO 0.02 K/mm3 (0.00-0.23); BASOPHILS PERCENT AUTO 0 % (0-2); EOSINOPHILS ABSOLUTE AUTO 0.13 K/mm3 (0.00-0.68); EOSINOPHILS PERCENT AUTO 2 % (0-6); Hematocrit 28.2 % (33.0-51.0); Hemoglobin 9.4 g/dL (11.5-16.0); IMMATURE GRAN ABSOLUTE AUTO 0.02 K/mm3 (0.00-0.10); IMMATURE GRAN PERCENT AUTO 0 % (0-1); LYMPHOCYTES ABSOLUTE AUTO 1.61 K/mm3 (0.84-5.20); LYMPHOCYTES PERCENT AUTO 25 % (21-46); MONOCYTES ABSOLUTE AUTO 0.61 K/mm3 (0.16-1.47); MONOCYTES PERCENT AUTO 10 % (4-13); Mean Corpuscular HGB Conc 33.3 g/dL (31.5-36.5); Mean Corpuscular Volume 94 fL (80-100); NEUTROPHILS ABSOLUTE AUTO 3.95 K/mm3 (1.96-9.15); NEUTROPHILS PERCENT AUTO 62 % (41-73); NRBC ABSOLUTE 0.00 K/mm3 (0.00-0.02); NRBC Auto 0.0 /100 WBC (0.0-0.2); Platelet Count 241 K/mm3 (150-400); RDW Coefficient Variation 13.9 % (11.7-14.2); RDW Standard Deviation 47.5 fL (35.1-46.3)
[2025-03-24 07:14] LABS: Anion Gap 9.0 mmol/L (3-11); Blood Urea Nitrogen 17.0 mg/dL (8-24); CO2, Blood 25.0 mmol/L (21-32); Calcium, Blood 8.9 mg/dL (8.5-10.1); Chloride, Blood 111.0 mmol/L (98-108); Creatinine, Blood 1.03 mg/dL (0.40-1.00); Glucose, Blood 158.0 mg/dL (70-99); Potassium, Blood 3.6 mmol/L (3.5-5.5); Sodium, Blood 141.0 mmol/L (136-145)
[2025-03-24 07:51] VITALS: BP 129/60
[2025-03-24] MEDS ORDERED: Folic Acid 1 MG TAB PO SCH (09:00)
[2025-03-24] MEDS ORDERED: Cholecalciferol 1000 Unit Tablet (=25MCG) PO SCH (09:00)
[2025-03-24] MEDS ORDERED: Ipratropium/Albuterol SulF 2.5-0.5MG/3 ML Amp INH PRN (15:05)
[2025-03-24] MEDS ORDERED: Albuterol HFA200 ACT/6.7 GM INH INH PRN (15:10)
[2025-03-24 16:32] VITALS: BP 129/61
--- NOTE | 2025-03-24 18:36 | NUR ---
SUMMARY- AAOX4. PT ON RA. SBA TO BATHROOM. NO ACUTE EVENTS THIS SHIFT. WOUND CARE PERFORMED PER WOUND CARE ORDERS.
[2025-03-24] MEDS ORDERED: DOXY100 PO (19:30)
[2025-03-24 19:57] VITALS: BP 132/71
[2025-03-24] MEDS ORDERED: INVOKANA300 MG PO (20:03)
[2025-03-24] MEDS ORDERED: VITAMIN D5000 UNIT PO (20:04)
[2025-03-25 04:16] VITALS: BP 168/76
--- NOTE | 2025-03-25 06:35 | NUR ---
SHIFT SUMMARY: PT IS AOX4, MOVES ALL EXTREMITIES WELL, TELEVISION AGENT X4, PUPILS ARE EQUAL ROUND AND REACTIVE TO LIGHT. PERIPHERAL PULSES PALPABLE, CAP REFILL < 3 SECONDS. BILATERAL BREATH SOUNDS CLEAR TO AUSCULTATION, EVEN AND UNLABORED. NO SHORTNESS OF BREATH OBSERVED. BOWEL TONES PRESENT IN ALL 4 QUADRANTS, ABDOMEN SOFT AND NONTENDER ON PALPATION. PT IS INTERMITTENTLY INCONTINENT, NO BLADDER DISTENTION OBSERVED. SKIN APPEARANCE APPROPRIATE FOR ETHNICITY AND IS WARM/DRY. REDDENED AREAS/INFLAMMATION DUE TO CELLULITIS HAVE DECREASED SINCE PREVIOUS [employer] AGENT WHEN THIS RN LAST ASSESSED BLE. PT HAS BEEN SLEEPING WELL THIS NIGHT WITH NO COMPLAINTS AND NO ACUTE EVENTS. SHE IS CURRENTLY SLEEPING WITH BEDSIDE TABLE, CELL PHONE, AND CALL LIGHT WITHIN REACH AND CALLS APPROPRIATELY TO COMMUNICATE HER NEEDS.
[2025-03-25 07:39] VITALS: BP 151/69
[2025-03-25] MEDS ORDERED: FERSU300 PO (12:46)
[2025-03-25] MEDS ORDERED: CLINDAMYCI900 MG/52 IV (12:48)
--- NOTE | 2025-03-25 16:25 | NUR ---
THIS RN ASSUMED CARE OF PT @ 1535, REPORT RECIEVED FROM PRIMARY RN IDANIA. PT TO DC TO FACILITY @ 1630. WHEELCHAIR TRANSPORT ARRIVED @ 1620. PT ABLE TO STAND AND AMBULATE INDEPENDENTLY TO . PT REPORTS HAVING ALL BELONGINGS. PT DISCHARGING c PG. PER JOSS EMERSON - WOUND CARE/DRESSING CHANGE COMPLETED BY HIM TODAY - DRESSINGS C/D/I @ TIME FOR DC. JOSS EMERSON ALSO CALLED REPORT TO FACILITY. NO TELE TO BE REMOVED.
== END 2025-03-25 16:25 | DRG 638 ==
LOC: ER 11:30 → MEDS 19:20 → ENPENDDIS 03-25 11:10 → MEDS 03-25 16:25
PROVIDERS: Emergency Medicine; Nurse Practitioner Acute Care; Student in an Organized Health Care Education/Training Program; ADMIT Student in an Organized Health Care Education/Training Program
DX: E11.628 Type 2 diabetes mellitus with other skin complications (principal); L03.115 Cellulitis of right lower limb; Z59.00 Homelessness unspecified; L03.116 Cellulitis of left lower limb; L97.429 Non-pressure chronic ulcer of left heel and midfoot with unspecified severity; L97.419 Non-pressure chronic ulcer of right heel and midfoot with unspecified severity; E11.621 Type 2 diabetes mellitus with foot ulcer; I10 Essential (primary) hypertension; E78.5 Hyperlipidemia, unspecified; E03.9 Hypothyroidism, unspecified; E66.01 Morbid (severe) obesity due to excess calories; M19.90 Unspecified osteoarthritis, unspecified site; I25.10 Atherosclerotic heart disease of native coronary artery without angina pectoris; I89.0 Lymphedema, not elsewhere classified; K58.9 Irritable bowel syndrome, unspecified; I77.810 Thoracic aortic ectasia; Z88.1 Allergy status to other antibiotic agents; Z88.2 Allergy status to sulfonamides; Z88.6 Allergy status to analgesic agent; Z88.8 Allergy status to other drugs, medicaments and biological substances; Z79.899 Other long term (current) drug therapy; Z79.82 Long term (current) use of aspirin; Z79.02 Long term (current) use of antithrombotics/antiplatelets; Z79.84 Long term (current) use of oral hypoglycemic drugs; Z79.890 Hormone replacement therapy; I25.2 Old myocardial infarction; Z95.5 Presence of coronary angioplasty implant and graft
CPT/HCPCS: 36415; 73620; 80048; 80053; 82607; 82728; 82746; 82947; 83540; 83550; 83605; 83880; 85025; 85651; 86141; 96365-59; 99284-25; A9270; J1650; J7050